=== PATIENT | female | born 2000 | race Two or more races ===

== ENCOUNTER 2024-06-08 21:35 | Emergency (ER) | payer MEDICAID, OTHER ==
[~2024-06-08] VITALS: Ht 165.1 cm; Wt 91.7 kg
[2024-06-08 22:14] LABS: Basophils # (auto) 0 10 ^3/uL (0-0.2); Basophils % (auto) 0.8 % (0.0-2.0); Eosinophils # (auto) 0 10 ^3/uL (0-0.8); Eosinophils % (auto) 0.2 % (0.0-7.0); Hematocrit 41.7 % (36.0-46.0); Hemoglobin 14.2 g/dL (12.2-16.2); Lymphocytes # (auto) 1.1 10 ^3/uL (0.4-5.4); Lymphocytes % (auto) 26.9 % (10.0-50.0); Mean Corpuscular Hemoglobin 31.2 pg (28.0-32.0); Mean Corpuscular Hgb Conc. 33.9 g/dL (32.0-36.0); Mean Corpuscular Volume 91.9 fL (80.0-100.0); Monocytes # (auto) 0.4 10 ^3/uL (0-1.3); Monocytes % (auto) 9.2 % (0.0-12.0); Neutrophils # (auto) 2.7 10 ^3/uL (1.6-8.6); Neutrophils % (auto) 62.9 % (37.0-80.0); Nucleated Red Blood Cells % 0.1 %; Platelet Count (auto) 326 10^3/uL (140-450); Red Blood Cells 4.54 10^6/uL (4.0-5.20); Red Cell Distribution Width 13.9 % (11.8-14.3); White Blood Cell 4.3 10^3/uL (4.4-10.8)
[2024-06-08 22:24] LABS: Chloride 107 mmol/L (98-107); Potassium 3.8 mmol/L (3.5-5.1); Sodium 141 mmol/L (136-145)
[2024-06-08 22:25] LABS: Anion Gap 6 (5-15); Calcium 9.8 mg/dL (8.7-10.4); Carbon Dioxide 28 mmol/L (20-31)
[2024-06-08 22:30] LABS: BUN/Creatinine Ratio 6.6 (10.0-20.0); Blood Urea Nitrogen 6 mg/dL (9-23); Glucose 102 mg/dL (74-106)
[2024-06-08 22:35] VITALS: BP 111/82; RESP 18; TEMP 98.6; O2SAT 99
[2024-06-08] MEDS: ALPRAZolam 0.5 MG TAB PO ONE (22:35)
[2024-06-08 22:38] VITALS: PULSE 88
[2024-06-09] MEDS ORDERED: ALPR0.5T PO (01:27)
== END 2024-06-09 01:39 | disposition home or self-care (01) ==
LOC: ER 21:35
DX: R07.89 Other chest pain (principal); F41.9 Anxiety disorder, unspecified; J45.909 Unspecified asthma, uncomplicated
CPT/HCPCS: 36415; 80048; 84484; 85025; 93005

== ENCOUNTER 2024-09-05 18:28 | Inpatient (IN) | payer MEDICAID, SELFPAY ==
[~2024-09-05] VITALS: Ht 165.1 cm; Wt 95.0 kg
[~2024-09-05 18:28] MED LIST: ALPR0.5T PO
--- NOTE | 2024-09-05 18:55 | ED.PDOC ---
HPI Comments 24-year-old female who came to ER via EMS for palpitations. Patient does have history of asthma and SVTs. She is not on any medications regard to her SVTs. Was seen yesterday at [facility] for palpitations in was discharge improved. Having palpitations again earlier today. Heart rate over 120 beats per minute so she decided to come back to the emergency room. She denies any acute chest pains or shortness a breath. Chief Complaint: Palpitations Time Seen by MD: 18:55 Reviewed Notes: Rotoprinter Notes Allergies: Coded Allergies: NO KNOWN ALLERGIES (Unverified , 06/08/24) Home Meds Active Scripts Alprazolam (Xanax) 0.5 Mg Tb, 1 TAB PO TID, #10 TAB Prov:HONORIO OSWALD PAC 06/09/24 Information Source: Patient, Emergency Med Personnel Mode of Arrival: EMS Severity: Moderate Timing: Hours Duration: Intermittent Prehospital treatment: None Location: Chest (R) Radiation: No Radiation Quality: Other (Palpitations) Onset: With Light Exertion Cardiac Risk Factors: Other (SVTs) History of: Similar pain in past Associated Signs and Symptoms: Palpitations Past Medical History PAST MEDICAL HISTORY: Anxiety, Asthma Past Medical History (Other): SVTs Surgical History: Denies all surgeries [employer] History: Ovarian Cysts Family History Family History: Reviewed,noncontributory to illness Social History Smoker: Non-Smoker Alcohol: Denies ETOH Use Drugs: Denies Drug Use Lives In: Home Constitutional: denies: chills, diaphoresis, fatigue, fever, malaise, sweats, weakness, others Respiratory: denies: cough, hemoptysis, orthopnea, SOB at rest, shortness of br eath, SOB with excertion, stridor, wheezing, others Cardiovascular: reports: palpitations; denies: chest pain, dizzy spells, diaphoresis, Dyspnea on exertion, edema, irregular heart beat, left arm pain, lightheadedness, PND, syncope, others Gastrointestinal: denies: abdomen distended, abdominal pain, blood streaked eliceo wels, constipated, diarrhea, dysphagia, difficulty swallowing, hematemesis, melena, nausea, poor appetite, poor fluid intake, rectal bleeding, rectal pain, vomiting, others Genitourinary: denies: abnormal vagina bleeding, burning, dyspareunia, dysuria, flank pain, frequency, hematuria, incontinence, pain, , vagina discharge, urgency, others Neurological: denies: dizziness, fainting, headache, left sided numbness, left sided weakness, numbness, paresthesia, pre-existing deficit, right sided numbness, right sided weakness, seizure, speech problems, tingling, tremors, weakness, others Musculoskeletal: denies: back pain, gout, joint pain, joint swelling, muscle pain, muscle stiffness, neck pain, others Integumetry: denies: bruises, change in color, change in hair/nails, dryness, laceration, lesions, lumps, rash, wounds, others Allergic/Immunocompromised: denies: Difficulty Healing, Frequent Infections, Hives, Itching, others Hematologic/Lymphatic: denies: anemia, blood clots, easy bleeding, easy bruis ing, swollen glands, others Endocrine: denies: excessive hunger, excessive sweating, excessive thirst, exc essive urination, flushing, intolerance to cold, intolerance to heat, unexplained weight gain, unexplained weight loss, others Psychiatric: denies: anxiety, bipolar disorder, depression, hopeless, panic disorder, schizophrenia, sleepless, suicidal, others Physical Exam General Appearance: No Apparent Distress, Normal HEENT: Normal ENT Inspection, Pharynx Normal, TMs Normal Neck: Full Range of Motion, Non-Tender, Normal, Normal Inspection Respiratory: Chest Non-Tender, Lungs Clear, No Accessory Muscle Use, No Resp iratory Distress, Normal Breath Sounds Cardiovascular: No Edema, No JVD, No Murmur, No Gallop, Normal Peripheral Pulses, Regular Rate/Rhythm Breast Exam: Deferred Gastrointestinal: No Organomegaly, Non Tender, No Pulsatile Mass, Normal Bowel Sounds, Soft Genitalia: Deferred Pelvic: Deferred Rectal: Deferred Extremities: No calf tenderness, Normal capillary refill, Normal inspection, Normal range of motion, Non-tender, No pedal edema Musculoskeletal : Apperance: Normal Neurologic: Alert, orthotic/prosthetic clinician II-XII nml as Tested, No Motor Deficits, Normal Affect, Normal Mood, No Sensory Deficits Cerebellar Function: Normal Reflexes: Normal Skin: Dry, Normal Color, Warm Lymphatic: No Adenopathy EKG EKG : Pulse Rate (adult): 70 Cardiac Rhythm: NSR Was a procedure done? Was a procedure done?: No CP Differential Dx Differential Diagnosis: A-fib, Anxiety / Panic Attack, Electrolyte Disorder, Hyperthyroidism, Hyperventilation, PSVT, PVC's, Sinus Tachycardia X-Ray, Labs, Meds, VS Vital Signs Date Time Temp Pulse Resp B/P (MAP) Pulse Ox O2 Delivery O2 Flow Rate FiO2 09/05/24 21:35 83 09/05/24 20:43 71 18 99 Room Air* 0 21 09/05/24 20:43 98.6 71 18 127/97 (107) 99 98.6 09/05/24 19:37 72 09/05/24 18:55 70 09/05/24 18:54 98.3 70 18 136/90 (105) 97 09/05/24 18:28 72 Lab Test 09/05/24 19:46 09/05/24 18:55 Range/Units Troponin I High Sensitivity < 3 L < 3 L </=34 ng/L White Blood Count 4.6 4.4-10.8 10^3/uL Red Blood Count 5.23 H 4.0-5.20 10^6/uL Hemoglobin 16.3 H 12.2-16.2 g/dL Hematocrit 47.8 H 36.0-46.0 % Mean Corpuscular Volume 91.5 80.0-100.0 fL Mean Corpuscular Hemoglobin 31.2 28.0-32.0 pg Mean Corpuscular Hemoglobin Concent 34.2 32.0-36.0 g/dL Red Cell Distribution Width 13.4 11.8-14.3 % Platelet Count 267 140-450 10^3/uL Mean Platelet Volume 8.9 6.9-10.8 fL Neutrophils (%) (Auto) 66.3 37.0-80.0 % Lymphocytes (%) (Auto) 25.9 10.0-50.0 % Monocytes (%) (Auto) 6.4 0.0-12.0 % Eosinophils (%) (Auto) 0.8 0.0-7.0 % Basophils (%) (Auto) 0.6 0.0-2.0 % Neutrophils # (Auto) 3.1 1.6-8.6 10 ^3/uL Lymphocytes # (Auto) 1.2 0.4-5.4 10 ^3/uL Monocytes # (Auto) 0.3 0-1.3 10 ^3/uL Eosinophils # (Auto) 0 0-0.8 10 ^3/uL Basophils # (Auto) 0 0-0.2 10 ^3/uL Nucleated Red Blood Cells 0.1 % Sodium Level 138 136-145 mmol/L Potassium Level 4.1 3.5-5.1 mmol/L Chloride Level 104 98-107 mmol/L Carbon Dioxide Level 27 20-31 mmol/L Anion Gap 7 5-15 Blood Urea Nitrogen 10 9-23 mg/dL Creatinine 0.94 0.550-1.02 mg/dL Glomerular Filtration Rate Calc 88 >90 mL/min BUN/Creatinine Ratio 10.6 10.0-20.0 Serum Glucose 100 74-106 mg/dL Calcium Level 9.8 8.7-10.4 mg/dL Total Bilirubin 0.5 0.2-1.0 mg/dL Aspartate Amino Transferase (AST) 19 13-40 U/L Alanine Aminotransferase (ALT) 16 7-40 U/L Alkaline Phosphatase 102 46-116 U/L Total Protein 7.6 5.7-8.2 g/dL Albumin 4.8 3.2-4.8 g/dL Time of 1ST Reevaluation: 18:50 Reevaluation 1ST: Unchanged Patient Education/Counseling: Diagnosis, Treatment Family Education/Counseling: No Family Present Departure 1 Departure Time of Disposition: 22:15 (Patient presented with chest pain that was concerning for possible STEMI, ACS, PE, Pneumonia, Muscle Strain, COPD, Dissection. Data: 1. I ordered and reviewed the result of at least 3 labs including a CBC, BMP, and Troponin. 2. I independently interpreted the following tests: EKG which shows sinus arrhythmia and Chest X-ray which shows benign ches t.Risk:This patient has a high risk of morbidity due to further diagnostic testing or treatment and may suffer from an acute cardiac or respiratory disorder. Workup reveals concern for ACS and patient should be admitted for further workup and possible expert consultation. ) Impression: Primary Impression: Acute chest pain Additional Impression: Palpitations Disposition: ADMITTED INPATIENT Admit to: Med Surg Condition: Serious Critical Care Note Critical Care Time?: Yes Critical care comment: Acute chest pain Authorized and Performed by: Adithya Glover MD Total critical care time: Approximately 32 minutes Due to a high probability of clinically significant, life threatening dete rioration, the patient required my highest level of preparedness to intervene emergently and I personally spent this critical care time directly and personally managing the patient. This critical care time included obtaining a history; examining the patient; pulse oximetry; ordering and review of studies; arranging urgent treatment with development of a management plan; evaluation of patient's response to treatment; frequent reassessment; and, discussions with other providers. This critical care time was performed to assess and manage the high probability of imminent, life-threatening deterioration that could result in multi-organ f ailure. It was exclusive of separately billable procedures and treating other patients and teaching time. Please see my other sections and the rest of the note for further information on patient assessment and treatment. Stability Stability form required: No Heart Score Heart Score: Heart Score Response (Comments) Value History Moderate Suspicious 1 EKG Normal 0 Age <45 0 Risk Factors 1 or 2 risk factors 1 Troponin Normal limit 0 Total 2 I personally scribed for ADITHYA GLOVER MD ([email or web address]) on 09/05/24 at 18:55. Electronically submitted by Dada Faust ([facility]). ADITHYA GLOVER MD Sep 05, 2024 18:55
[2024-09-05 19:06] LABS: Basophils # (auto) 0 10 ^3/uL (0-0.2); Basophils % (auto) 0.6 % (0.0-2.0); Eosinophils # (auto) 0 10 ^3/uL (0-0.8); Eosinophils % (auto) 0.8 % (0.0-7.0); Hematocrit 47.8 % (36.0-46.0); Hemoglobin 16.3 g/dL (12.2-16.2); Lymphocytes # (auto) 1.2 10 ^3/uL (0.4-5.4); Lymphocytes % (auto) 25.9 % (10.0-50.0); Mean Corpuscular Hemoglobin 31.2 pg (28.0-32.0); Mean Corpuscular Hgb Conc. 34.2 g/dL (32.0-36.0); Mean Corpuscular Volume 91.5 fL (80.0-100.0); Monocytes # (auto) 0.3 10 ^3/uL (0-1.3); Monocytes % (auto) 6.4 % (0.0-12.0); Neutrophils # (auto) 3.1 10 ^3/uL (1.6-8.6); Neutrophils % (auto) 66.3 % (37.0-80.0); Nucleated Red Blood Cells % 0.1 %; Platelet Count (auto) 267 10^3/uL (140-450); Red Blood Cells 5.23 10^6/uL (4.0-5.20); Red Cell Distribution Width 13.4 % (11.8-14.3); White Blood Cell 4.6 10^3/uL (4.4-10.8)
--- NOTE | 2024-09-05 19:17 | ECG ---
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
[2024-09-05 19:32] LABS: Alanine Aminotransferase 16 U/L (7-40); Alkaline Phosphatase 102 U/L (46-116); Anion Gap 7 (5-15); Aspartate Aminotransferase 19 U/L (13-40); BUN/Creatinine Ratio 10.6 (10.0-20.0); Bilirubin, Total 0.5 mg/dL (0.2-1.0); Blood Urea Nitrogen 10 mg/dL (9-23); Calcium 9.8 mg/dL (8.7-10.4); Carbon Dioxide 27 mmol/L (20-31); Chloride 104 mmol/L (98-107); Glucose 100 mg/dL (74-106); Potassium 4.1 mmol/L (3.5-5.1); Sodium 138 mmol/L (136-145); Total Protein 7.6 g/dL (5.7-8.2)
[2024-09-05 19:33] LABS: Albumin 4.8 g/dL (3.2-4.8)
[2024-09-05 20:43] VITALS: PULSE 71; RESP 18; O2SAT 99
[2024-09-06] VITALS (9 sets, daily range): BP systolic 102–136; BP diastolic 64–97; PULSE 69–105; RESP 16–20; TEMP 97.7–98.4; O2SAT 96–100
[2024-09-06] MEDS ORDERED: MORPHINE SULFATE INJ 2 MG/ml SYRG IV PRN (00:30)
[2024-09-06] MEDS: LORazepam 0.5 MG TAB PO ONE (00:45)
[2024-09-06] MEDS ORDERED: ONDANSETRON HCL 4 MG/2 ML VIAL IV PRN (00:45)
[2024-09-06] MEDS ORDERED: ACETAMINOPHEN 325 MG TAB PO PRN (00:45)
--- NOTE | 2024-09-06 00:56 | DVHHPRES ---
History of Present Illness Resident Creating Document: CHRIS VERMA RESIDENT Reason for Visit: Palpitations and chest pain History of Present Illness This is a 24-year-old female who came into the ER via EMS with chief complain of palpitations. She has a past medical history relevant for asthma, PCOS, anxiety disorder. Patient denies any drugs, smoking or alcohol use. She stated that since last Monday she has been experiencing palpitations, which wax and wane, exacerbate with changes of position, eating habits. She says it was associated with chest pain, pressure-like, midsternal, localized, which is also associated with nausea, shortness of breath, it was relief with re st and relaxation. She also mentions having chills, denies any recent sick contacts. Patient was previously hospitalized here for similar findings she was sent to product assembler, however, she has been able to get an appointment. She was seen in [place] yesterday and was discharged with metoprolol 25 mg p.o., which she took one time, however no improvement was made. She currently states feeling anxious, still having chest pain, shortness of breath, she has currently on room air, ambulatory. Patient was admitted for further investigation and management. Pulmonary: Asthma Psych: Anxiety Past Medical History PCOS Past Surgical History: None Family History: DM, Hypertension Smoke: No ALCOHOL: rare Lives: with Family Review of Systems Constitutional: Yes: Chills; No: Fever, Sweats, Weakness, Malaise, Other Eyes: No: Pain, Vision change, Conjunctivae inflammation, Eyelid inflammation, Other, Redness ENT: No: Ear pain, Ear discharge, Nose pain, Nose discharge, Nose congestion, Mouth pain, Mouth swelling, Throat pain, Throat swelling, Other Respiratory: Shortness of breath, SOB with excertion; No: Cough, Dry, Wheezing, Hemoptysis, Pleuritic Pain, Sputum, Wheezing, Other Cardiovascular: Chest Pain, Palpitations; No: Orthopnea, Paroxysmal Noc. Dyspnea, Edema, Lt Headedness, Other Gastrointestinal: Nausea; No: Vomiting, Abdominal Pain, Diarrhea, Constipation, Melena, Hematochezia, Other Genitourinary: No Dysuria, No Frequency, No Incontinence, No Hematuria, No Retention, No Other Musculoskeletal: No: other, neck pain, shoulder pain, arm pain, back pain, hand pain, leg pain, foot pain Skin: No: Rash, Lesions, Jaundice, Bruising, Other Neurological: No: Weakness, Numbness, Incoordination, Change in speech, Confusion, Seizures, Other Allergies: Coded Allergies: NO KNOWN ALLERGIES (Unverified , 06/08/24) Medications Current Medications Medications Dose Ordered Sig/Fransisco Route Start Time Stop Time Status Last Admin Dose Admin Morphine Sulfate 2 mg Q30M PRN IV 09/06/24 00:30 Exam Vital Signs Vital Signs Date Time Temp Pulse Resp B/P (MAP) Pulse Ox O2 Delivery O2 Flow Rate FiO2 09/05/24 23:38 98.1 103 16 131/86 (101) 99 98.1 09/05/24 20:43 Room Air* 0 21 General Appearance: Alert, Oriented X3, Cooperative, No acute distress HEENT: Atraumatic, PERRLA, EOMI, Mucous membr. moist/pink Respiratory: Clear to auscultation, Normal air movement Cardiovascular: Regular rate, Normal S1, Normal S2, No murmurs Abdominal: Normal bowel sounds, Soft, No tenderness Extremities: No clubbing, No cyanosis, No edema, Normal pulses, No t enderness/swelling Skin: No rashes, No breakdown, No significant lesion Neuro: Normal gait, Normal speech, Strength at 5/5 X4 ext, Normal tone, Sensation intact, Cranial nerves 3-12 NL Psych/Mental Status: Mental status NL, Mood NL, Other (Anxious) Labs/Xrays Labs Test 09/05/24 19:46 09/05/24 18:55 Range/Units Troponin I High Sensitivity < 3 L </=34 ng/L White Blood Count 4.6 4.4-10.8 10^3/uL Red Blood Count 5.23 H 4.0-5.20 10^6/uL Hemoglobin 16.3 H 12.2-16.2 g/dL Hematocrit 47.8 H 36.0-46.0 % Mean Corpuscular Volume 91.5 80.0-100.0 fL Mean Corpuscular Hemoglobin 31.2 28.0-32.0 pg Mean Corpuscular Hemoglobin Concent 34.2 32.0-36.0 g/dL Red Cell Distribution Width 13.4 11.8-14.3 % Platelet Count 267 140-450 10^3/uL Mean Platelet Volume 8.9 6.9-10.8 fL Neutrophils (%) (Auto) 66.3 37.0-80.0 % Lymphocytes (%) (Auto) 25.9 10.0-50.0 % Monocytes (%) (Auto) 6.4 0.0-12.0 % Eosinophils (%) (Auto) 0.8 0.0-7.0 % Basophils (%) (Auto) 0.6 0.0-2.0 % Neutrophils # (Auto) 3.1 1.6-8.6 10 ^3/uL Lymphocytes # (Auto) 1.2 0.4-5.4 10 ^3/uL Monocytes # (Auto) 0.3 0-1.3 10 ^3/uL Eosinophils # (Auto) 0 0-0.8 10 ^3/uL Basophils # (Auto) 0 0-0.2 10 ^3/uL Nucleated Red Blood Cells 0.1 % Sodium Level 138 136-145 mmol/L Potassium Level 4.1 3.5-5.1 mmol/L Chloride Level 104 98-107 mmol/L Carbon Dioxide Level 27 20-31 mmol/L Anion Gap 7 5-15 Blood Urea Nitrogen 10 9-23 mg/dL Creatinine 0.94 0.550-1.02 mg/dL Glomerular Filtration Rate Calc 88 >90 mL/min BUN/Creatinine Ratio 10.6 10.0-20.0 Serum Glucose 100 74-106 mg/dL Calcium Level 9.8 8.7-10.4 mg/dL Total Bilirubin 0.5 0.2-1.0 mg/dL Aspartate Amino Transferase (AST) 19 13-40 U/L Alanine Aminotransferase (ALT) 16 7-40 U/L Alkaline Phosphatase 102 46-116 U/L Total Protein 7.6 5.7-8.2 g/dL Albumin 4.8 3.2-4.8 g/dL Assessment/Plan Assessment/Plan #Chest pain, rule out ACS, likely noncardiac, related to below, costochondritis #Anxiety disorder #Panic attack #Palpitations, likely sinus tachycardia due to above, rule out postural tachycardia syndrome, hyperthyroidism EKG reviewed, NSR, mild left atrial enlargement, no acute ST-T changes Troponins within normal limits Order echocardiogram Counseled on lifestyle modifications Cardiac diet Ordered test Ordered chest x-ray Order orthostatic vitals Ordered ESR, CRP, TSH, lipid panel, magnesium, UDS, UA Pain management p.r.n. Ativan 1 mg p.o. q.6 hours p.r.n. #History of Asthma, controlled Monitor #History of PCOS Monitor #Obesity Counseled on lifestyle modifications Goals of care were discussed for over 30 minutes. Full code Case was discussed with Dr. Tate Plan discussed with: Patient My Orders Orders - CHRIS VERMA Procedure Category Date Status Time Admit ADMIT 09/06/24 Transmitted 00:29 Morphine Sulfate [facility] 09/06/24 In Process Injection 00:30 Notify Md Of Changes [place] 09/06/24 In Process From Base 00:29 Health Lead For [facility] 09/06/24 In Process 24 Hours 00:29 Emergency Dysrhythmia [facility] 09/06/24 In Process Protocol 00:29 Rhythm Strips Once [facility] 09/06/24 In Process Every Shift 00:29 Echo 2d Mode Cardiac US 09/06/24 Logged DOP 00:33 Complete Blood Count LAB 09/06/24 Transmitted 04:00 Basic Metabolic Panel LAB 09/06/24 Transmitted 04:00 Troponin-I Hs LAB 09/06/24 Transmitted 04:00 C-Reactive Protein LAB 09/06/24 Transmitted 00:33 Erythrocyte LAB 09/06/24 Transmitted Sedimentation Rate 00:33 Urinalysis LAB 09/06/24 Transmitted 00:33 Drug Screen LAB 09/06/24 Transmitted 00:33 Lorazepam Tablet PHA 09/06/24 Transmitted (Ativan Tablet) 00:45 Lorazepam Tablet PHA 09/06/24 Transmitted (Ativan Tablet) 00:45 Thyroid Stimulating LAB 09/06/24 Transmitted Hormone 00:33 Magnesium LAB 09/06/24 Transmitted 00:33 Chest Xray 1 View XY 09/06/24 Logged 00:33 Beta Hcg, Quantitative LAB 09/06/24 Transmitted 00:33 Orthostatic Vital ORDERS 09/06/24 Transmitted Signs 00:33 Acetaminophen Tablet PHA 09/06/24 Transmitted (Tylenol Tablet) 00:45 Cardiac DIET 09/06/24 Transmitted Diet-2gna,Lofat,Lochol Breakfast Ondansetron Hcl PHA 09/06/24 Transmitted (Zofran) 00:45 Date of Service: Sep 05, 2024 Billing Provider: MATILDE LOUIS MD Common Visit Codes: [id number] INP/OBS CARE (HIGH) CHRIS VERMA RESIDENT Sep 06, 2024 00:56 MATILDE LOUIS MD Sep 11, 2024 16:01
[2024-09-06 01:08] LABS: Thyroid Stimulating Hormone 1.28 uIU/mL (0.55-4.78)
[2024-09-06 01:09] LABS: Beta HCG, Quantitative 0.5 mIU/mL (1.5-4.2)
--- NOTE | 2024-09-06 01:13 | DVH ---
EXAM: XY CHEST XRAY 1 VIEW CLINICAL HISTORY: chest pain TECHNIQUE: Single AP view of the chest WID: COMPARISON: None FINDINGS: Lines and tubes: None Chest: The heart size and pulmonary vasculature is within normal limits. No pleural effusion, pneumothorax, or consolidation. The osseous structures are grossly intact. IMPRESSION: No acute cardiopulmonary abnormality.
[2024-09-06 01:38] LABS: Erythrocyte Sedimentation Rate 6 mm/hr (0-20)
[2024-09-06 01:43] LABS: CRP High Sensitivity 0.18 mg/dL (<1.0)
[2024-09-06] MEDS: LORazepam 0.5 MG TAB PO PRN (03:21)
[2024-09-06 08:06] LABS: Rapid Influenza A Negative (Negative); Rapid Influenza B Negative (Negative)
[2024-09-06 08:07] LABS: COVID19 ANTIGEN SOFIA FIA NEGATIVE (NEGATIVE)
[2024-09-06 09:34] LABS: Urine Bacteria None Seen /hpf (None Seen)
[2024-09-06 09:49] LABS: Urine Blood Negative /uL (Negative); Urine Clarity Clear (Clear); Urine Color Yellow (Yellow); Urine Mucus FEW (None Seen); Urine Protein, UAD TRACE (Negative); Urine Specific Gravity 1.027 (1.001-1.035); Urine Squamous Epithelial Cell FEW /hpf (<5); Urine Urobilinogen Normal (Negative); Urine WBC 3 /HPF (0-5); Urine pH 5.5 (5.0-9.0)
[2024-09-06 09:56] LABS: Barbiturate Scree,Urine Neg (NEGATIVE); Opiate Scree,Urine Neg (NEGATIVE); Phencyclidine Screen, Urine Neg (NEGATIVE)
[2024-09-06 09:57] LABS: Amphetamine Screen, Urine Neg (NEGATIVE); Benzodiazephine Screen, Urine Neg (NEGATIVE); Cannabinoid Screen, Urine Neg (NEGATIVE); Cocaine Screen, Urine Neg (NEGATIVE)
[2024-09-06 10:44] LABS: Basophils # (auto) 0 10 ^3/uL (0-0.2); Basophils % (auto) 0.6 % (0.0-2.0); Eosinophils # (auto) 0.1 10 ^3/uL (0-0.8); Eosinophils % (auto) 1.1 % (0.0-7.0); Hematocrit 44.8 % (36.0-46.0); Hemoglobin 15.1 g/dL (12.2-16.2); Lymphocytes % (auto) 35.3 % (10.0-50.0); Mean Corpuscular Hemoglobin 31.1 pg (28.0-32.0); Mean Corpuscular Hgb Conc. 33.7 g/dL (32.0-36.0); Mean Corpuscular Volume 92.3 fL (80.0-100.0); Monocytes # (auto) 0.3 10 ^3/uL (0-1.3); Monocytes % (auto) 5.8 % (0.0-12.0); Neutrophils # (auto) 3.2 10 ^3/uL (1.6-8.6); Neutrophils % (auto) 57.2 % (37.0-80.0); Nucleated Red Blood Cells % 0.1 %; Platelet Count (auto) 269 10^3/uL (140-450); Red Blood Cells 4.86 10^6/uL (4.0-5.20); White Blood Cell 5.6 10^3/uL (4.4-10.8)
[2024-09-06 11:00] LABS: Anion Gap 7 (5-15); Carbon Dioxide 26 mmol/L (20-31); Chloride 103 mmol/L (98-107); Potassium 3.6 mmol/L (3.5-5.1); Sodium 136 mmol/L (136-145)
[2024-09-06 11:01] LABS: Calcium 9.8 mg/dL (8.7-10.4)
[2024-09-06 11:06] LABS: BUN/Creatinine Ratio 13.3 (10.0-20.0); Blood Urea Nitrogen 11 mg/dL (9-23)
[2024-09-06 11:11] LABS: Glucose 128 mg/dL (74-106)
--- NOTE | 2024-09-06 11:46 | DVHSR ---
APPROVED REPORT EXAM: Two-dimensional and M-mode echocardiogram with Doppler and color Doppler. Blood Pressure: 124/83 mmHg INDICATION Chest Pain RISK FACTORS Height: 5'5, Weight: 209 DIMENSIONS LVDd4.6 (3.8-5.7cm)LA (2D)3.8 (1.9-4.0cm)Aortic Root3.1 (2.0-3.7cm) LVDs3.1 (2.5-4.0cm)LA (MM) (1.9-4.0cm)Aortic Cusp Exc1.9 (1.5-2.0cm) EF (%) 60.0 (55-70%)Rt. Atrium3.0 (1.9-4.0cm)Asc. Aorta2.6 cm IVSd1.0 (0.7-1.1cm)RV (D)3.8 (1.8-2.4cm) PWd1.0 (0.7-1.1cm) Mitral Valve MitralMitral Stenosis E wave0.78m/sMV Mean GR.mmHg A wave0.44m/sMV Peak GR.mmHg E/A ratio1.82D MVAcm2 DECEL [id number] 1/2 Timems Aortic Valve Aortic ValveAortic Stenosis V10.89m/Aditya Mean GR.4mmHg V21.22m/Aditya Peak GR.6mmHg LVOT Diameter2.0 (1.8-2.4cm)Doppler AVA2.29cm2 Pulmonic Valve V20.88m/s Tricuspid Valve TR Velocity2.20m/s [id number] LEFT VENTRICLE The left ventricle is normal size. There is normal left ventricular wall thickness. The left ventricle is normal in structure and function, LVEF is 60-65%. Tissue Doppler imaging reveals normal left ventricular diastolic function. Normal wall motion. RIGHT VENTRICLE The right ventricle is normal size. The right ventricular systolic function is normal. ATRIA The left atrial size is normal. The right atrium size is normal. MITRAL VALVE The mitral valve is normal in structure and function. There is no mitral valve regurgitation noted. PULMONIC VALVE The pulmonic valve is not well visualized. TRICUSPID VALVE The tricuspid valve is normal in structure and function. No tricuspid regurgitation. AORTIC VALVE The aortic valve is trileaflet. No aortic regurgitation is present. GREAT VESSELS The aortic root is normal size. PERICARDIAL EFFUSION No pericardial effusion. Conclusion The left ventricle is normal size. There is normal left ventricular wall thickness. The left ventricl e is normal in structure and function, LVEF is 60-65%. Normal wall motion. Tissue Doppler imaging rev eals normal left ventricular diastolic function. The right ventricular systolic function is normal. The left atrial size is normal. The right atrium size is normal. No significant valvular abnormalities. No pericardial effusion.
[2024-09-06] MEDS: SODIUM CHLORIDE 0.9% 1,000 ML IV SCH (12:26)
--- NOTE | 2024-09-06 16:57 | DVHPNRES ---
Progress Note Date Seen: Sep 06, 2024 Resident Creating Document: DAYA JORDAN RESIDENT Medical Necessity Reason Pt with a Central, PICC or Fol: No Subjective Review of Systems This is a 24-year-old female with past medical history of panic disorder, asthma presented to the ED with a chief complaint of intermittent palpitation since 1 day prior to this admission. patient also stated that palpitation is associated with chest pain which is pressure-like midsternal, localized 7/10 and associated with nausea and shortness of breath. patient also mentioned that previously she was hospitalized because of the palpitation and she was following with commissary clerk and waiting for appointment with neon tube pumper. She was seen in [place] yesterday and was discharged with metoprolol 25 mg p.o., which she took one time, however no improvement was made.She currently states feeling anxious, still having chest pain, shortness of breath, she has currently on room air, ambulatory. Patient was admitted for further investigation and management. Patient was seen and examined on the bedside. She is alert oriented x3. complaint of anxiety, mild chest discomfort and no other active complaints. Constitutional: No: Fever, Chills, Sweats, Weakness, Malaise, Other Eyes: No: Pain, Vision change, Conjunctivae inflammation, Eyelid inflammation, Other, Redness ENT: No: Ear pain, Ear discharge, Nose pain, Nose discharge, Nose congestion, Mouth pain, Mouth swelling, Throat pain, Throat swelling, Other Respiratory: Shortness of breath, improving No: Cough, Dry,Wheezing, Hemoptysis, Pleuritic Pain, Sputum, Wheezing, Other Cardiovascular: Chest Pain, Palpitations, No Orthopnea, Paroxysmal Noc. Dyspnea, Edema, Lt Headedness, Other Gastrointestinal: No: Nausea, Vomiting, Abdominal Pain, Diarrhea, Constipation, Melena, Hematochezia, Other Musculoskeletal: No: other, neck pain, shoulder pain, arm pain, back pain, hand pain, leg pain, foot pain Neurological:; No: Weakness, Numbness, Incoordination, Change in speech, Confusion, Seizures Objective vital signs Vital Sign Date Time Temp Pulse Resp B/P (MAP) Pulse Ox O2 Delivery O2 Flow Rate FiO2 09/06/24 12:58 97.7 72 16 130/86 (101) 100 97.7 134/93 (107) 136/97 (110) 09/06/24 08:00 Room Air* 0 21 Total Intake and Output 09/05/24 09/05/24 09/06/24 15:00 23:00 07:00 Intake Total 100 ml Output Total 0 ml Balance 100 ml medications Current Medications Medications Dose Ordered Sig/Fransisco Route Start Time Stop Time Status Last Admin Dose Admin Morphine Sulfate 2 mg Q30M PRN IV 09/06/24 00:30 Lorazepam 1 mg Q6HP PRN PO 09/06/24 00:45 09/06/24 10:31 1 MG Acetaminophen 650 mg Q6HP PRN PO 09/06/24 00:45 Ondansetron HCl 4 mg Q4HPRN PRN IV 09/06/24 00:45 Ketorolac Tromethamine 15 mg Q6HPRN PRN IV 09/06/24 06:00 09/11/24 05:59 Sodium Chloride 1,000 ml @ 125 mls/hr Q8H IV 09/06/24 12:00 09/06/24 12:26 125 MLS/HR Examination Physical examination: General Appearance: Alert, Oriented X3, Cooperative, No acute distress HEENT: Atraumatic, PERRLA, EOMI, Mucous membrane moist/pink Respiratory: Clear to auscultation, Normal air movement Cardiovascular: Regular rate, Normal S1, Normal S2, No murmurs, no chest wall tenderness Abdominal: Normal bowel sounds, Soft, No tenderness, No hepatospenomegaly, No masses Extremities: No clubbing, No cyanosis, No edema, Normal pulses, No tenderness/swelling Skin: No rashes, No breakdown, No significant lesion Neuro: Normal gait, Normal speech, Strength at 5/5 X4 ext, Normal tone, Sensation intact, grossly intact cranial nerves. Psych/Mental Status: Mental status NL, Mood NL laboratory and microbiology Laboratory Tests 09/06/24 10:05 Test 09/06/24 10:05 Range/Units Serum Glucose 128 H 74-106 mg/dL Labs and/or images reviewed: Labs reviewed by me, Image(s) reviewed by me Problem List/Assessment/Plan Problem List/Assessment/Plan Assessment and plan: # Chest pain and palpitation, ruled out ACS # Possible panic attack # History of panic disorder # Rule out tachyarrhythmia - patient is on telemetry - initial EKG revealed sinus tachycardia and troponins were unremarkable - Chest xray demonstrated no acute cardiopulmonary abnormality. - Echo revealed ejection fraction 60-65% with normal left ventricular diastolic dysfunction - Orthoststic vital negative - ESR, CRP, TSH, magnesium, UDS, UA are within normal limit - Ativan 1 mg p.o. q.6 p.r.n. - IV normal saline at 125 mL/hour - Xanax 0.25 mg at HS once. # History of bronchial asthma - Breathing treatment with Levoalbuterol p.r.n. # History of PCOS - Continue home meds - follow up with PCP # Obesity class 1 ( BMI 34.9 kg/m2) - Counseled the patient regarding DASH diet, lifestyle modification and moderate intensity physical exercise at least 150 minutes per week Goal of care discussed with the patient for more than 20 minutes full code Plan discussed with Dr. Tate Plan discussed with: Patient, Other My Orders My Orders Orders - DAYA JORDAN Procedure Category Date Status Time Transfer Orders XFER 09/06/24 Transmitted 10:38 Sodium Chloride 0.9% PHA 09/06/24 In Process 12:00 Date of Service: Sep 06, 2024 Billing Provider: MATILDE LOUIS MD Common Visit Codes: [id number] INP/OBS CARE(HIGH) DAYA JORDAN Sep 06, 2024 16:57 MATILDE LOUIS MD Sep 11, 2024 00:07
[2024-09-06] MEDS: ALPRAZolam 0.25 MG TAB PO ONE (18:26)
[2024-09-06] MEDS: KETOROLAC TROMETH 30 MG/ML 1ML VIAL IV PRN (23:11)
[2024-09-07] VITALS (7 sets, daily range): BP systolic 111–129; BP diastolic 49–86; PULSE 63–91; RESP 15–20; TEMP 97.7–98.1; O2SAT 93–100
[2024-09-07 07:16] LABS: Basophils # (auto) 0 10 ^3/uL (0-0.2); Basophils % (auto) 0.5 % (0.0-2.0); Eosinophils # (auto) 0.1 10 ^3/uL (0-0.8); Hematocrit 41.7 % (36.0-46.0); Hemoglobin 14.1 g/dL (12.2-16.2); Lymphocytes # (auto) 2.3 10 ^3/uL (0.4-5.4); Mean Corpuscular Hgb Conc. 33.7 g/dL (32.0-36.0); Mean Corpuscular Volume 91.9 fL (80.0-100.0); Monocytes # (auto) 0.5 10 ^3/uL (0-1.3); Monocytes % (auto) 8.7 % (0.0-12.0); Neutrophils # (auto) 3.3 10 ^3/uL (1.6-8.6); Neutrophils % (auto) 52.8 % (37.0-80.0); Nucleated Red Blood Cells % 0.1 %; Platelet Count (auto) 262 10^3/uL (140-450); Red Blood Cells 4.54 10^6/uL (4.0-5.20); Red Cell Distribution Width 13.2 % (11.8-14.3); White Blood Cell 6.2 10^3/uL (4.4-10.8)
[2024-09-07 07:43] LABS: Albumin 3.8 g/dL (3.2-4.8); Alkaline Phosphatase 80 U/L (46-116); Anion Gap 10 (5-15); Blood Urea Nitrogen 9 mg/dL (9-23); Calcium 9.5 mg/dL (8.7-10.4); Carbon Dioxide 23 mmol/L (20-31); Glucose 86 mg/dL (74-106); Potassium 3.6 mmol/L (3.5-5.1); Sodium 141 mmol/L (136-145)
[2024-09-07 07:44] LABS: Alanine Aminotransferase < 9 U/L (7-40); Aspartate Aminotransferase 10 U/L (13-40); Bilirubin, Total 0.4 mg/dL (0.2-1.0); Chloride 108 mmol/L (98-107); Total Protein 6.3 g/dL (5.7-8.2)
[2024-09-07] MEDS ORDERED: SERT25TA28 PO (15:19)
--- NOTE | 2024-09-07 15:26 | DVHDSRES ---
Discharge Summary Date of Admission Resident Creating Document: SHUKRI BROCK RESIDENT Sep 06, 2024 at 00:29 Date of Discharge: Sep 07, 2024 Admitting Diagnosis Acute palpitations Wounds: No wounds present at this time. Labs/Diagnostic Data: Laboratory Results Test 09/07/24 05:41 09/06/24 10:05 09/06/24 09:15 09/06/24 06:30 White Blood Count 6.2 10^3/uL (4.4-10.8) Red Blood Count 4.54 10^6/uL (4.0-5.20) Hemoglobin 14.1 g/dL (12.2-16.2) Hematocrit 41.7 % (36.0-46.0) Mean Corpuscular Volume 91.9 fL (80.0-100.0) Mean Corpuscular Hemoglobin 31.0 pg (28.0-32.0) Mean Corpuscular Hemoglobin Concent 33.7 g/dL (32.0-36.0) Red Cell Distribution Width 13.2 % (11.8-14.3) Platelet Count 262 10^3/uL (140-450) Mean Platelet Volume 9.0 fL (6.9-10.8) Neutrophils (%) (Auto) 52.8 % (37.0-80.0) Lymphocytes (%) (Auto) 37.0 % (10.0-50.0) Monocytes (%) (Auto) 8.7 % (0.0-12.0) Eosinophils (%) (Auto) 1.0 % (0.0-7.0) Basophils (%) (Auto) 0.5 % (0.0-2.0) Neutrophils # (Auto) 3.3 10 ^3/uL (1.6-8.6) Lymphocytes # (Auto) 2.3 10 ^3/uL (0.4-5.4) Monocytes # (Auto) 0.5 10 ^3/uL (0-1.3) Eosinophils # (Auto) 0.1 10 ^3/uL (0-0.8) Basophils # (Auto) 0 10 ^3/uL (0-0.2) Nucleated Red Blood Cells 0.1 % Sodium Level 141 mmol/L (136-145) Potassium Level 3.6 mmol/L (3.5-5.1) Chloride Level 108 mmol/L (98-107) Carbon Dioxide Level 23 mmol/L (20-31) Anion Gap 10 (5-15) Blood Urea Nitrogen 9 mg/dL (9-23) Creatinine 0.75 mg/dL (0.550-1.02) Glomerular Filtration Rate Calc 115 mL/min (>90) BUN/Creatinine Ratio 12.0 (10.0-20.0) Serum Glucose 86 mg/dL (74-106) Calcium Level 9.5 mg/dL (8.7-10.4) Total Bilirubin 0.4 mg/dL (0.2-1.0) Aspartate Amino Transferase (AST) 10 U/L (13-40) Alanine Aminotransferase (ALT) < 9 U/L (7-40) Alkaline Phosphatase 80 U/L (46-116) Total Protein 6.3 g/dL (5.7-8.2) Albumin 3.8 g/dL (3.2-4.8) Troponin I High Sensitivity < 3 ng/L (</=34) Urine Color Yellow (Yellow) Urine Clarity Clear (Clear) Urine pH 5.5 (5.0-9.0) Urine Specific [place] 1.027 (1.001-1.035) Urine Protein Trace (Negative) Urine Ketones 2+ (Negative) Urine Blood Negative /uL (Negative) Urine Nitrite Negative (Negative) Urine Bilirubin Negative (Negative) Urine Urobilinogen Normal mg/dL (Negative) Urine Leukocyte Esterase Negative /uL (Negative) Urine RBC 1 /hpf (0 - 4) Urine Microscopic WBC 3 /HPF (0-5) Urine Squamous Epithelial Cells Few /hpf (<5) Urine Bacteria None seen /hpf (None Seen) Urine Mucus Few (None Seen) Urine Glucose Normal mg/dL (Normal) Urine Test Negative (Negative) Urine Opiates Screen Neg (NEGATIVE) Urine Fentanyl Screen Neg (NEGATIVE) Urine Barbiturates Screen Neg (NEGATIVE) Urine Phencyclidine Screen Neg (NEGATIVE) Urine Amphetamines Screen Neg (NEGATIVE) Urine Benzodiazepines Screen Neg (NEGATIVE) Urine Cocaine Screen Neg (NEGATIVE) Urine Cannabinoids Screen Neg (NEGATIVE) Influenza Type A Antigen Negative (Negative) Influenza Type B Antigen Negative (Negative) SARS-CoV-2 Antigen (Rapid) Negative (NEGATIVE) Test 09/05/24 18:55 Erythrocyte Sedimentation Rate 6 mm/hr (0-20) Magnesium Level 2.0 mg/dL (1.6-2.6) C-Reactive Protein High Sensitivity 0.18 mg/dL (<1.0) Thyroid Stimulating Hormone (TSH) 1.28 uIU/mL (0.55-4.78) Beta HCG, Quantitative 0.5 mIU/mL (1.5-4.2) Other Laboratory Tests 09/07/24 05:41 Brief Hx & Hospital Course: This is a 24-year-old female with past medical history of panic disorder, asthma presented to the ED with a chief complaint of intermittent palpitation since 1 day prior to this admission. The patient also stated that palpitation is associated with chest pain/discomfort which is pressure-like midsternal, localized in the chest with no specific pattern of radiation, associated with nausea and shortness of breath. Patient was placed on telemetry to analyze the rhythm overnight and determine the possibility of any arrhythmias at this time. We analyzed cardiac rhythm overnight and the patient had two episodes of sustained sinus tachycardia in the 120s-130s. When we discuss the findings with the patient, she admitted she woke up at that same time with sensation of fear and palpitations. No tachyarrhythmias were reported in the color television console monitor. We will discharge the patient on sertraline 25 mg daily with close follow-up with his PCP. We explained to the patient that if after six weeks of been on the medication she still presenting with the same symptoms need [facility] for event monitor and further assessment. Discharge plan: -control panic disorder with the sertraline 25 mg daily p.o. -follow-up with the discharge Clinic -follow-up with her PCP in one week Consults/Reason for consult N/A Operations or Procedures EXAM: XY CHEST XRAY 1 VIEW CLINICAL HISTORY: chest pain TECHNIQUE: Single AP view of the chest WID: COMPARISON: None FINDINGS: Lines and tubes: None Chest: The heart size and pulmonary vasculature is within normal limits. No pleural effusion, pneumothorax, or consolidation. The osseous structures are grossly intact. IMPRESSION: No acute cardiopulmonary abnormality. Condition at Discharge: Good Final Diagnosis/Problems List Chest pain and palpitation, ruled out ACS Possible panic attack History of panic disorder Rule out tachyarrhythmia History of bronchial asthma History of PCOS Obesity class 1 ( BMI 34.9 kg/m2) Discharge Disposition: Home Discharge Instruct/Medications Diet: Regular Activity: No Restrictions, As Tolerated Follow Up/Referral: Follow-up with her PCP one week Follow-up with discharge Clinic. Medications: Sertraline 25 mg daily Discharge Statement: "Patient was advised to return to the ER or call 911 if any headaches, dizziness, shortness of breath, chest pain, abdominal pain, bleeding, fevers, or worsening of medical condition. Patient was counseled about treatment plan, medications, possible side effects, patientverbalized understanding. All questions were answered to the best of my ability. This discharge took greater then 30 minutes in planning, reviewing documentation, counseling the patient, and discussing with other team members." ASSESSMENT ASSESSMENT Assessment Chest pain and palpitation, ruled out ACS Possible panic attack History of panic disorder Rule out tachyarrhythmia History of bronchial asthma History of PCOS Obesity class 1 ( BMI 34.9 kg/m2) SHUKRI BROCK RESIDENT Sep 07, 2024 15:26
--- NOTE | 2024-09-09 11:31 | ECG ---
[facility] Test Date: 2024-09-05 Test Time: 21:35:57 Pat Name: SHERINE MARY Department: ER Room: [address] [place] [address] 7 Gender: F Street Department Dispatcher: KETURAH : 2000 Requested By: ADITHYA CHUA Order Number: [id number] Reading MD: Jorge Daugherty Measurements Intervals [place] Rate: 83 P: 63 AR: 118 QRS: 52 QRSD: 72 T: 12 QT: 344 QTc: 405 Interpretive Statements Sinus rhythm Borderline short AR interval Borderline T wave abnormalities Electronically Signed On 09-09-2024 21:08:20 PST by Jorge Daugherty Please click the below link to view image of tracing.
--- NOTE | 2024-09-09 11:32 | ECG ---
[facility] Test Date: 2024-09-05 Test Time: 19:37:56 Pat Name: SHERINE MARY Department: ER Room: [address] [place] [address] 7 Gender: F Spreader Operator: KETURAH : 2000 Requested By: ADITHYA CHUA Order Number: [id number] Reading MD: Jorge Daugherty Measurements Intervals [place] Rate: 72 P: 41 VA: 117 QRS: 45 QRSD: 76 T: 8 QT: 367 QTc: 402 Interpretive Statements Sinus rhythm Borderline short VA interval Probable left atrial enlargement Borderline T wave abnormalities Electronically Signed On 09-09-2024 21:08:08 PST by Jorge Daugherty Please click the below link to view image of tracing.
== END 2024-09-07 18:31 | disposition home or self-care (01) | DRG 880 ==
LOC: EDBD 18:28 → ER 18:28 → TELE 09-06 00:29 → EAST 09-06 02:57 → TELE-E-ADS 09-07 03:48
PROVIDERS: ADMIT Student in an Organized Health Care Education/Training Program; ATTEND Student in an Organized Health Care Education/Training Program
DX: F41.9 Anxiety disorder, unspecified (principal); M94.0 Chondrocostal junction syndrome [Tietze]; E28.2 Polycystic ovarian syndrome; R00.2 Palpitations; E05.90 Thyrotoxicosis, unspecified without thyrotoxic crisis or storm; J45.909 Unspecified asthma, uncomplicated; E66.811 Obesity, class 1; Z20.822 Contact with and (suspected) exposure to COVID-19; F41.0 Panic disorder [episodic paroxysmal anxiety]; Z68.34 Body mass index [BMI] 34.0-34.9, adult; Z83.3 Family history of diabetes mellitus; Z82.49 Family history of ischemic heart disease and other diseases of the circulatory system
CPT/HCPCS: 36415; 71045; 80048; 80053; 80307; 81001; 81025; 83735; 84443; 84484; 84702; 85025; 85652; 86141; 87426; 87804; 93005; 93306; 99291; G0378; J1885

== ENCOUNTER 2024-09-25 14:50 | Inpatient (IN) | payer SELFPAY ==
[~2024-09-25] VITALS: Ht 165.1 cm; Wt 76.0 kg
[~2024-09-25 14:50] MED LIST changes: +SERT25TA28 PO
[2024-09-25] MEDS: ASPirin 81 mg TAB PO ONE (15:06)
--- NOTE | 2024-09-25 15:23 | DVH ---
CHEST RADIOGRAPH Indication: Chest pain and palpitations Technique: Single frontal view of the chest was obtained COMPARISON: XY CHEST XRAY 1 VIEW on DOS: 09/06/24 FINDINGS: Lines and Tubes: None Lungs: Clear Pleura: No effusion. No pneumothorax. Cardiomediastinal contours: Unremarkable Bones: Unremarkable IMPRESSION: No acute disease.
--- NOTE | 2024-09-25 15:33 | ED.PDOC ---
HPI Comments 24y F who presents to the ED for chief complaint of palpitations. Pt states she has history of SVT and states she was on beta malou and states she was taken of medication 3 days prior. Pt states earlier this AM, she noted her apple watch caught her heart rate in the 170's and pt started to feel palpitations, chest pressure, and dizziness and called EMS. EMS arrived on scene and noted pt has stable vitals and heart rate was 90 and in sinus rhythm. EMS states en route to the ED, pt started to have heart rate ranging in the 150's but no medication was given prior to ED arrival. Pt in the ED, states she is continuing to have symptoms and has noted heart rate of 106 in the ED. Pt states she is continuing to have her associated dizziness, chest pressure and chills. Pt otherwise denies any other symptoms at this time. Chief Complaint: Chest Pain Time Seen by MD: 15:29 Primary Care Provider: UNKNOWN Reviewed Notes: Nurses Notes, Relief Man Notes, Medications, Allergies (NKDA ) Allergies: Coded Allergies: NO KNOWN ALLERGIES (Unverified , 06/08/24) Home Meds Active Scripts Sertraline Hcl (Sertraline Hcl) 25 Mg Tab, 1 TAB PO DAILY for 30 Days, #30 TAB 2 Refills Prov:SHUKRI BROCK RESIDENT 09/07/24 Alprazolam (Xanax) 0.5 Mg Tb, 1 TAB PO TID, #10 TAB Prov:HONORIO OSWALD PAC 06/09/24 Information Source: Patient, Emergency Med Personnel Mode of Arrival: EMS Brought in by: EMS Severity: Moderate Timing: Hours Duration: Since onset Prehospital treatment: None Quality: Pressure Onset: At Rest Cardiac Risk Factors: None (SVT) PE Risk Factors: None History of: Similar pain in past Modifying Factors: Nothing Associated Signs and Symptoms: Other (dizziness, chills) Past Medical History PAST MEDICAL HISTORY: Anxiety, Asthma, HTN Past Medical History (Other): PCOS, SVT Surgical History: Denies all surgeries 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 Family History Family History: Reviewed,noncontributory to illness Social History Smoker: Non-Smoker Alcohol: Denies ETOH Use Drugs: Denies Drug Use Lives In: Home Constitutional: reports: chills; denies: diaphoresis, fatigue, fever, malaise, sweats, weakness, others EENTM: denies: blurred vision, double vision, ear bleeding, ear discharge, ear drainage, ear pain, ear ringing, eye pain, eye redness, hearing loss, mouth pain, mouth swelling, nasal discharge, nose bleeding, nose congestion, nose pain, photophobia, tearing, throat pain, throat swelling, voice changes, others Respiratory: denies: cough, hemoptysis, orthopnea, SOB at rest, shortness of breath, SOB with excertion, stridor, wheezing, others Cardiovascular: reports: palpitations; denies: chest pain, dizzy spells, diaphoresis, Dyspnea on exertion, edema, irregular heart beat, left arm pain, lightheadedness, PND, syncope, others Gastrointestinal: denies: abdomen distended, abdominal pain, blood streaked bowels, constipated, diarrhea, dysphagia, difficulty swallowing, hematemesis, melena, nausea, poor appetite, poor fluid intake, rectal bleeding, rectal pain, vomiting, others Genitourinary: denies: abnormal vagina bleeding, burning, dyspareunia, dysuria, flank pain, frequency, hematuria, incontinence, pain, , vagina discharge, urgency, others Neurological: reports: dizziness; denies: fainting, headache, left sided numbness, left sided weakness, numbness, paresthesia, pre-existing deficit, right sided numbness, right sided weakness, seizure, speech problems, tingling, tremors, weakness, others Musculoskeletal: denies: back pain, gout, joint pain, joint swelling, muscle pain, muscle stiffness, neck pain, others Integumetry: denies: bruises, change in color, change in hair/nails, dryness, laceration, lesions, lumps, rash, wounds, others Allergic/Immunocompromised: denies: Difficulty Healing, Frequent Infections, Hives, Itching, others Hematologic/Lymphatic: denies: anemia, blood clots, easy bleeding, easy bruising, swollen glands, others Endocrine: denies: excessive hunger, excessive sweating, excessive thirst, excessive urination, flushing, intolerance to cold, intolerance to heat, unexplained weight gain, unexplained weight loss, others Psychiatric: denies: anxiety, bipolar disorder, depression, hopeless, panic disorder, schizophrenia, sleepless, suicidal, others All Other Systems: Reviewed and Negative Physical Exam General Appearance: Moderate Distress HEENT: Normal ENT Inspection, Pharynx Normal, TMs Normal Neck: Full Range of Motion, Non-Tender, Normal, Normal Inspection Respiratory: Chest Non-Tender, Lungs Clear, No Accessory Muscle Use, No Respiratory Distress, Normal Breath Sounds Cardiovascular: No Edema, No JVD, No Murmur, No Gallop, Tachycardia Breast Exam: Deferred Gastrointestinal: No Organomegaly, Non Tender, No Pulsatile Mass, Normal Bowel Sounds, Soft Genitalia: Deferred Pelvic: Deferred Rectal: Deferred Extremities: No calf tenderness, Normal capillary refill, No pedal edema Musculoskeletal : Apperance: Normal Neurologic: Alert, dry wall nailer II-XII nml as Tested, Motor Weakness, Normal Affect, Normal Mood, No Sensory Deficits Cerebellar Function: Normal Reflexes: Normal Skin: Dry, Normal Color, Warm Lymphatic: No Adenopathy EKG EKG : Pulse Rate (adult): 106 [place]: Normal Cardiac Rhythm: ST Block: None Hypertrophy: None ST: Normal Was a procedure done? Was a procedure done?: No CP Differential Dx Differential Diagnosis: A-fib, A-Flutter, Angina, Anxiety / Panic Attack, PSVT, Pulmonary Embolus, PVC's, Sinus Tachycardia Other Differential Diagnosis SVT Differential Diagnosis: HTN Essential, HTN Encephalopathy X-Ray, Labs, Meds, VS Vital Signs Date Time Temp Pulse Resp B/P (MAP) Pulse Ox O2 Delivery O2 Flow Rate FiO2 09/25/24 16:37 93 16 124/68 (86) 97 09/25/24 15:48 86 09/25/24 15:33 106 09/25/24 15:25 Room Air* 0 21 09/25/24 15:09 98.7 103 15 133/85 (101) 100 98.7 09/25/24 14:59 106 09/25/24 14:59 98.7 98 20 150/100 (117) 99 Lab Test 09/25/24 16:15 09/25/24 15:08 Range/Units Magnesium Level Pending Troponin I High Sensitivity < 3 L < 3 L </=34 ng/L White Blood Count 6.7 4.4-10.8 10^3/uL Red Blood Count 4.91 4.0-5.20 10^6/uL Hemoglobin 15.0 12.2-16.2 g/dL Hematocrit 44.7 36.0-46.0 % Mean Corpuscular Volume 91.2 80.0-100.0 fL Mean Corpuscular Hemoglobin 30.6 28.0-32.0 pg Mean Corpuscular Hemoglobin Concent 33.5 32.0-36.0 g/dL Red Cell Distribution Width 13.0 11.8-14.3 % Platelet Count 261 140-450 10^3/uL Mean Platelet Volume 9.2 6.9-10.8 fL Neutrophils (%) (Auto) 51.2 37.0-80.0 % Lymphocytes (%) (Auto) 37.6 10.0-50.0 % Monocytes (%) (Auto) 8.4 0.0-12.0 % Eosinophils (%) (Auto) 2.4 0.0-7.0 % Basophils (%) (Auto) 0.4 0.0-2.0 % Neutrophils # (Auto) 3.4 1.6-8.6 10 ^3/uL Lymphocytes # (Auto) 2.5 0.4-5.4 10 ^3/uL Monocytes # (Auto) 0.6 0-1.3 10 ^3/uL Eosinophils # (Auto) 0.2 0-0.8 10 ^3/uL Basophils # (Auto) 0 0-0.2 10 ^3/uL Nucleated Red Blood Cells 0.2 % Sodium Level 139 136-145 mmol/L Potassium Level 4.3 3.5-5.1 mmol/L Chloride Level 105 98-107 mmol/L Carbon Dioxide Level 26 20-31 mmol/L Anion Gap 8 5-15 Blood Urea Nitrogen 8 L 9-23 mg/dL Creatinine 0.88 0.550-1.02 mg/dL Glomerular Filtration Rate Calc 95 >90 mL/min BUN/Creatinine Ratio 9.1 L 10.0-20.0 Serum Glucose 114 H 74-106 mg/dL Calcium Level 9.4 8.7-10.4 mg/dL Total Bilirubin 0.2 0.2-1.0 mg/dL Aspartate Amino Transferase (AST) 22 13-40 U/L Alanine Aminotransferase (ALT) 17 7-40 U/L Alkaline Phosphatase 86 46-116 U/L Total Protein 6.9 5.7-8.2 g/dL Albumin 4.4 3.2-4.8 g/dL Current Medications Medications (Trade) Dose Ordered Sig/Fransisco Route Start Time Stop Time Status Last Admin Aspirin 162 mg ONCE ONCE PO 09/25/24 15:00 09/25/24 15:04 DC 09/25/24 15:06 Patient's CBC and chemistry panel are within normal limits. The magnesium level is pending The troponin level x2 is within normal limits The patient was given aspirin 162 mg by mouth The chest x-ray shows: No sign of any abnormalities The patient was being admitted at this time. We discussed the findings with the patient and she is in agreement with the management. A cardiology consult will also be obtained. Images Reviewed?: Images reviewed and evaluated by me Time of 1ST Reevaluation: 16:00 Reevaluation 1ST: Unchanged Patient Education/Counseling: Diagnosis, Treatment, Prognosis Family Education/Counseling: No Family Present Additional Information - I reviewed the following notes from patient's past medical encounters: - The following tests were ordered, and results were reviewed by me: (Labs, X- Ray, EKG):cbc, cmp, trop x3, ekg x3, mag, chest x-ray - Additional information was gathered from interviewing the following independent Historian: (Family, Other Providers, EMT): EMS - I reviewed and agreed with the following test results read by other provider: (X-ray, CT, US): radiologist - I discussed treatments and results with medical personnel and: (consultants, family): none Departure 1 Departure Time of Disposition: 17:02 Impression: Primary Impression: SVT (supraventricular tachycardia) Additional Impression: Acute chest pain Disposition: 09 ADMITTED INPATIENT Admit to: Tele Condition: Fair Critical Care Note Critical Care Time?: Yes (45 min-critical care time only) Stability Stability form required: Yes Unstable for transfer: Telemetry monitoring (Telemetry monitoring required), ED Physician Assesment (Clinical assesment) Heart Score Heart Score: Heart Score Response (Comments) Value History Slightly Suspicious 0 EKG Normal 0 Age <45 0 Risk Factors 1 or 2 risk factors 1 Troponin Normal limit 0 Total 1 I personally scribed for JED MUSTAFA MD ([email or web address]) on 09/25/24 at 15:33. Electronically submitted by Renate Ferro ([email or web address]). JED MUSTAFA MD Sep 25, 2024 15:33
[2024-09-25 15:37] LABS: Basophils # (auto) 0 10 ^3/uL (0-0.2); Basophils % (auto) 0.4 % (0.0-2.0); Eosinophils # (auto) 0.2 10 ^3/uL (0-0.8); Eosinophils % (auto) 2.4 % (0.0-7.0); Hematocrit 44.7 % (36.0-46.0); Lymphocytes # (auto) 2.5 10 ^3/uL (0.4-5.4); Lymphocytes % (auto) 37.6 % (10.0-50.0); Mean Corpuscular Hemoglobin 30.6 pg (28.0-32.0); Mean Corpuscular Hgb Conc. 33.5 g/dL (32.0-36.0); Mean Corpuscular Volume 91.2 fL (80.0-100.0); Monocytes # (auto) 0.6 10 ^3/uL (0-1.3); Monocytes % (auto) 8.4 % (0.0-12.0); Neutrophils # (auto) 3.4 10 ^3/uL (1.6-8.6); Neutrophils % (auto) 51.2 % (37.0-80.0); Nucleated Red Blood Cells % 0.2 %; Platelet Count (auto) 261 10^3/uL (140-450); Red Blood Cells 4.91 10^6/uL (4.0-5.20); White Blood Cell 6.7 10^3/uL (4.4-10.8)
[2024-09-25 15:43] LABS: Alanine Aminotransferase 17 U/L (7-40); Albumin 4.4 g/dL (3.2-4.8); Alkaline Phosphatase 86 U/L (46-116); Anion Gap 8 (5-15); Aspartate Aminotransferase 22 U/L (13-40); BUN/Creatinine Ratio 9.1 (10.0-20.0); Calcium 9.4 mg/dL (8.7-10.4); Carbon Dioxide 26 mmol/L (20-31); Chloride 105 mmol/L (98-107); Potassium 4.3 mmol/L (3.5-5.1); Sodium 139 mmol/L (136-145); Total Protein 6.9 g/dL (5.7-8.2)
[2024-09-25 15:46] LABS: Bilirubin, Total 0.2 mg/dL (0.2-1.0); Blood Urea Nitrogen 8 mg/dL (9-23); Glucose 114 mg/dL (74-106)
[2024-09-25] MEDS: MORPHINE SULFATE 4 MG/ML SYR/VIAL IV ONE (18:14)
[2024-09-25] MEDS: ONDANSETRON HCL 4 MG/2 ML VIAL IV ONE (18:14)
[2024-09-25] MEDS: ADENOSINE 6 MG/2 ML INJ IV ONE ×4 (18:22→18:28)
[2024-09-25] MEDS: METOPROLOL TARTRATE 1MG/1ML-5ML VIAL IV ONE ×2 (18:27→18:48)
--- NOTE | 2024-09-25 19:07 | ECG ---
[facility] Test Date: 2024-09-25 Test Time: 14:56:19 Pat Name: SHERINE MARY Department: ed Room: [address] [place] [address] Gender: F Assembler Body: jay jay : 2000 Requested By: JED MUSTAFA Order Number: [id number] Reading MD: Jorge Daugherty Measurements Intervals [place] Rate: 106 P: 82 SC: 131 QRS: 54 QRSD: 77 T: 15 QT: 332 QTc: 441 Interpretive Statements Sinus tachycardia Ventricular premature complex Biatrial enlargement Baseline wander in lead(s) V4 Electronically Signed On 09-26-2024 22:17:03 PST by Jorge Daugherty Please click the below link to view image of tracing.
--- NOTE | 2024-09-25 19:08 | ECG ---
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
[2024-09-25 19:30] VITALS: PULSE 77; RESP 18; O2SAT 98
[2024-09-25] MEDS: SODIUM CHLORIDE 0.9% 1,000 ML IV ONE (20:09)
[2024-09-25 21:27] LABS: Urine Bacteria None Seen /hpf (None Seen)
[2024-09-25] MEDS ORDERED: ONDANSETRON HCL 4 MG/2 ML VIAL IV PRN (21:30)
[2024-09-25] MEDS ORDERED: MORPHINE SULFATE INJ 2 MG/ml SYRG IV PRN ×2 (21:30)
[2024-09-25] MEDS ORDERED: NITROGLYCERIN 0.4 MG SL TAB SL PRN (21:30)
[2024-09-25 21:38] LABS: Urine Blood 3+ /uL (Negative); Urine Clarity Clear (Clear); Urine Color Colorless (Yellow); Urine Protein, UAD TRACE (Negative); Urine Specific Gravity 1.021 (1.001-1.035); Urine Squamous Epithelial Cell FEW /hpf (<5); Urine Urobilinogen Normal (Negative); Urine WBC 5 /HPF (0-5)
[2024-09-25] MEDS: SODIUM CHLOR 0.9% PF (SALINE LOCK) 10ML VIAL/SYR IV SCH (22:00)
--- NOTE | 2024-09-25 23:51 | DVHHPRES ---
History of Present Illness Resident Creating Document: ALEX HOPKINS RESIDENT History of Present Illness SHERINE MARY a 24-year-old female with a PMH of sinus tachycardia, asthma, anxiety, panic attacks, PCOS presented to the ED with the chief complaints of dizziness, palpitations. Patient reports she has been diagnosed with a sinus tachycardia 1 year ago on beta-blockers but she stopped taking 4 days ago since then she has been having dizziness palpitations. Pt reported earlier this AM, she noted her apple watch caught her heart rate in the 170's and pt started to feel palpitations, chest pressure, and dizziness and called EMS. EMS arrived on scene and noted pt has stable vitals and heart rate was 90 and in sinus rhythm. EMS states en route to the ED, pt started to have heart rate ranging in the 150's but no medication was given prior to ED arrival. PMH: Sinus tachycardic, anxiety, asthma, panic attacks, PCOS PSH: Denies Family history: Noncontributory Social history: Lives with a fiancee. Denies smoking, alcohol and other drug abuse allergies: No known allergies Review of Systems Constitutional: No: Fever, Chills, Sweats, Weakness, Malaise, Other Eyes: No: Pain, Vision change, Conjunctivae inflammation, Eyelid inflammation, Other, Redness ENT: No: Ear pain, Ear discharge, Nose pain, Nose discharge, Nose congestion, Mouth pain, Mouth swelling, Throat pain, Throat swelling, Other Respiratory: No: Cough, Dry, Shortness of breath, SOB with excertion, Wheezing, Hemoptysis, Pleuritic Pain, Sputum, Wheezing, Other Cardiovascular: Chest Pain, Palpitations, Lt Headedness Gastrointestinal: No: Nausea, Vomiting, Abdominal Pain, Diarrhea, Constipation, Melena, Hematochezia, Other Genitourinary: No Dysuria, No Frequency, No Incontinence, No Hematuria, No Retention, No Other Skin: No: Rash, Lesions, Jaundice, Bruising, Other Neurological: No: Weakness, Numbness, Incoordination, Change in speech, Confusion, Seizures, Other Allergies: Coded Allergies: NO KNOWN ALLERGIES (Unverified , 06/08/24) Medications Current Medications Medications Dose Ordered Sig/Fransisco Route Start Time Stop Time Status Last Admin Dose Admin Sodium Chloride 10 ml Q8HR IV 09/25/24 22:00 Sodium Chloride 1,000 ml @ 60 mls/hr [id number] IV 09/25/24 21:30 Ondansetron HCl 4 mg Q4HP PRN IV 09/25/24 21:30 Enoxaparin Sodium 40 mg DAILY SC 09/26/24 10:00 Acetaminophen 650 mg Q6HP PRN PO 09/25/24 21:30 Morphine Sulfate 2 mg Q4HPRN PRN IV 09/25/24 21:30 Nitroglycerin 0.4 mg Q5MINP PRN SL 09/25/24 21:30 Morphine Sulfate 2 mg Q30M PRN IV 09/25/24 21:30 Exam Vital Signs Vital Signs Date Time Temp Pulse Resp B/P (MAP) Pulse Ox O2 Delivery O2 Flow Rate FiO2 09/25/24 19:30 98.0 77 18 139/92 (108) 98 98.0 09/25/24 19:30 Room Air* 0 21 Exam Pt is lying on bed General Appearance: Alert, Oriented X3, Cooperative, Not in acute distress HEENT: Atraumatic, Mucous membranes moist/pink Respiratory: Clear to auscultation, Normal air movement, No added sounds Cardiovascular: Regular rate, Normal S1, Normal S2, No murmurs Abdominal: Active bowel sounds, Soft, no distention, no tenderness Extremities: No edema, Normal pulses, No tenderness/swelling Skin: No Significant rash, except past surgical scars Neuro: Normal speech, sensorimotor deficits none Psych/Mental Status: Mental status NL, Mood NL Nurse was there as sharperone during examination Labs/Xrays Labs Test 09/25/24 18:00 09/25/24 16:15 09/25/24 15:08 Range/Units Urine Color Colorless Yellow Urine Clarity Clear Clear Urine pH 8.0 5.0-9.0 Urine Specific [place] 1.021 1.001-1.035 Urine Protein Trace H Negative Urine Ketones Negative Negative Urine Blood 3+ H Negative /uL Urine Nitrite Negative Negative Urine Bilirubin Negative Negative Urine Urobilinogen Normal Negative mg/dL Urine Leukocyte Esterase Negative Negative /uL Urine RBC 199 0 - 4 /hpf Urine Microscopic WBC 5 0-5 /HPF Urine Squamous Epithelial Cells Few <5 /hpf Urine Bacteria None seen None Seen /hpf Urine Glucose Normal Normal mg/dL Magnesium Level 1.8 1.6-2.6 mg/dL Troponin I High Sensitivity < 3 L </=34 ng/L White Blood Count 6.7 4.4-10.8 10^3/uL Red Blood Count 4.91 4.0-5.20 10^6/uL Hemoglobin 15.0 12.2-16.2 g/dL Hematocrit 44.7 36.0-46.0 % Mean Corpuscular Volume 91.2 80.0-100.0 fL Mean Corpuscular Hemoglobin 30.6 28.0-32.0 pg Mean Corpuscular Hemoglobin Concent 33.5 32.0-36.0 g/dL Red Cell Distribution Width 13.0 11.8-14.3 % Platelet Count 261 140-450 10^3/uL Mean Platelet Volume 9.2 6.9-10.8 fL Neutrophils (%) (Auto) 51.2 37.0-80.0 % Lymphocytes (%) (Auto) 37.6 10.0-50.0 % Monocytes (%) (Auto) 8.4 0.0-12.0 % Eosinophils (%) (Auto) 2.4 0.0-7.0 % Basophils (%) (Auto) 0.4 0.0-2.0 % Neutrophils # (Auto) 3.4 1.6-8.6 10 ^3/uL Lymphocytes # (Auto) 2.5 0.4-5.4 10 ^3/uL Monocytes # (Auto) 0.6 0-1.3 10 ^3/uL Eosinophils # (Auto) 0.2 0-0.8 10 ^3/uL Basophils # (Auto) 0 0-0.2 10 ^3/uL Nucleated Red Blood Cells 0.2 % Sodium Level 139 136-145 mmol/L Potassium Level 4.3 3.5-5.1 mmol/L Chloride Level 105 98-107 mmol/L Carbon Dioxide Level 26 20-31 mmol/L Anion Gap 8 5-15 Blood Urea Nitrogen 8 L 9-23 mg/dL Creatinine 0.88 0.550-1.02 mg/dL Glomerular Filtration Rate Calc 95 >90 mL/min BUN/Creatinine Ratio 9.1 L 10.0-20.0 Serum Glucose 114 H 74-106 mg/dL Calcium Level 9.4 8.7-10.4 mg/dL Total Bilirubin 0.2 0.2-1.0 mg/dL Aspartate Amino Transferase (AST) 22 13-40 U/L Alanine Aminotransferase (ALT) 17 7-40 U/L Alkaline Phosphatase 86 46-116 U/L Total Protein 6.9 5.7-8.2 g/dL Albumin 4.4 3.2-4.8 g/dL Thyroid Stimulating Hormone (TSH) 1.48 0.55-4.78 uIU/mL Plasma/Serum Blood Alcohol < 3.0 <10 mg/dL Assessment/Plan Assessment/Plan # Chest pain rule out ACS -reviewed EKG no ST changes -troponins x2 were negative -chest pain protocol # SVT VS sinus tach -EKG showed sinus tachy -given adenosine -normal sinus rhythm now -continuously monitored on telemetry # panic attacks, anxiety -resume home meds # asthma not in exacerbation PUD PPX: Not indicated VTE PPX: Lovenox Diet: Cardiac diet Goals of care discussed with the patient for more than 29 minutes: Full code status Case discussed with Dr. Weber, patient and nurse. Plan discussed with: Patient, Other (Andrea and RN) My Orders Orders - ALEX HOPKINS RESIDENT Procedure Category Date Status Time Admit ADMIT 09/25/24 Transmitted 21:28 Allergies KENNEY 09/25/24 In Process 21:28 Code Status CODE 09/25/24 Transmitted 21:28 Sodium Chloride Lock PHA 09/25/24 In Process (Saline Lock Ns) 22:00 Sodium Chloride 0.9% PHA 09/25/24 In Process 21:30 Ondansetron Hcl PHA 09/25/24 In Process (Zofran) 21:30 Enoxaparin Sodium PHA 09/26/24 In Process (Lovenox) 10:00 Complete Blood Count LAB 09/26/24 Verified 04:00 Comprehensive LAB 09/26/24 Verified Metabolic Panel 04:00 Cardiac DIET 09/26/24 Transmitted Diet-2gna,Lofat,Lochol Breakfast Condition: Stable KENNEY 09/25/24 In Process 21:28 Acetaminophen Tablet PHA 09/25/24 In Process (Tylenol Tablet) 21:30 Morphine Sulfate PHA 09/25/24 In Process Injection 21:30 Nitroglycerin PHA 09/25/24 In Process Sublingual (Ntrostat 21:30 Morphine Sulfate PHA 09/25/24 In Process Injection 21:30 Oxygen By Nasal RT 09/25/24 Transmitted Cannula 21:28 Stat Ekg For Chest KENNEY 09/25/24 In Process Pain 21:28 Notify Md Of Changes [facility] 09/25/24 In Process From Base 21:28 Cold Header For [facility] 09/25/24 In Process 24 Hours 21:28 Emergency Dysrhythmia [facility] 09/25/24 In Process Protocol 21:28 Rhythm Strips Once [facility] 09/25/24 In Process Every Shift 21:28 Rapid Influenza A&B LAB 09/25/24 Logged 22:03 Covid19 Antigen [facility] 09/25/24 Logged Drug Screen LAB 09/25/24 Logged 22:03 Date of Service: Sep 25, 2024 Billing Provider: KALYN WEBER MD Common Visit Codes: [id number] INP/OBS CARE (HIGH) ALEX HOPKINS RESIDENT Sep 25, 2024 23:51 KALYN WEBER MD Sep 26, 2024 13:03
[2024-09-26] MEDS: ACETAMINOPHEN 325 MG TAB PO PRN (00:07)
[2024-09-26] MEDS: SODIUM CHLORIDE 0.9% 1,000 ML IV SCH (00:07)
[2024-09-26] MEDS: HYDROcodone-ACET 5/325MG TAB PO ONE (04:31)
[2024-09-26 06:00] VITALS: TEMP 98.7
[2024-09-26] MEDS: ALPRAZolam 0.5 MG TAB PO SCH (06:15)
[2024-09-26 07:35] LABS: Basophils # (auto) 0 10 ^3/uL (0-0.2); Basophils % (auto) 0.6 % (0.0-2.0); Eosinophils # (auto) 0.1 10 ^3/uL (0-0.8); Eosinophils % (auto) 1.2 % (0.0-7.0); Hematocrit 42.8 % (36.0-46.0); Hemoglobin 14.4 g/dL (12.2-16.2); Lymphocytes # (auto) 1.6 10 ^3/uL (0.4-5.4); Lymphocytes % (auto) 29.8 % (10.0-50.0); Mean Corpuscular Hemoglobin 30.8 pg (28.0-32.0); Mean Corpuscular Hgb Conc. 33.7 g/dL (32.0-36.0); Mean Corpuscular Volume 91.3 fL (80.0-100.0); Monocytes # (auto) 0.4 10 ^3/uL (0-1.3); Neutrophils # (auto) 3.2 10 ^3/uL (1.6-8.6); Neutrophils % (auto) 60.4 % (37.0-80.0); Nucleated Red Blood Cells % 0.1 %; Platelet Count (auto) 249 10^3/uL (140-450); Red Blood Cells 4.69 10^6/uL (4.0-5.20); Red Cell Distribution Width 13.4 % (11.8-14.3); White Blood Cell 5.2 10^3/uL (4.4-10.8)
--- NOTE | 2024-09-26 07:42 | DVHPNRES ---
Progress Note Objective vital signs Vital Sign Date Time Temp Pulse Resp B/P (MAP) Pulse Ox O2 Delivery O2 Flow Rate FiO2 09/26/24 06:00 98.7 60 15 113/67 (82) 99 98.7 09/25/24 19:30 Room Air* 0 21 Total Intake and Output 09/25/24 09/25/24 09/26/24 15:00 23:00 07:00 Intake Total 1000 ml 353 ml Balance 1000 ml 353 ml medications Current Medications Medications Dose Ordered Sig/Fransisco Route Start Time Stop Time Status Last Admin Dose Admin Sodium Chloride 10 ml Q8HR IV 09/25/24 22:00 09/26/24 06:05 10 ML Sodium Chloride 1,000 ml @ 60 mls/hr [id number] IV 09/25/24 21:30 09/26/24 00:07 60 MLS/HR Ondansetron HCl 4 mg Q4HP PRN IV 09/25/24 21:30 Acetaminophen 650 mg Q6HP PRN PO 09/25/24 21:30 09/26/24 00:07 650 MG Morphine Sulfate 2 mg Q4HPRN PRN IV 09/25/24 21:30 Nitroglycerin 0.4 mg Q5MINP PRN SL 09/25/24 21:30 Alprazolam 0.5 mg TID PO 09/26/24 06:00 09/26/24 06:15 0.5 MG Sertraline HCl 25 mg DAILY PO 09/26/24 10:00 laboratory and microbiology Laboratory Tests 09/26/24 07:17 Test 09/26/24 07:17 Range/Units Serum Glucose Pending CARRIE TAYLOR RESIDENT Sep 26, 2024 07:42
[2024-09-26] MEDS: MAGNESIUM OXIDE 400 MG TAB PO ONE (07:44)
[2024-09-26 07:56] LABS: COVID19 ANTIGEN SOFIA FIA NEGATIVE (NEGATIVE)
[2024-09-26 07:57] LABS: Rapid Influenza A Negative (Negative); Rapid Influenza B Negative (Negative)
[2024-09-26 08:01] LABS: Alanine Aminotransferase 14 U/L (7-40); Albumin 4.2 g/dL (3.2-4.8); Alkaline Phosphatase 80 U/L (46-116); Anion Gap 6 (5-15); BUN/Creatinine Ratio 8.8 (10.0-20.0); Bilirubin, Total 0.5 mg/dL (0.2-1.0); Carbon Dioxide 26 mmol/L (20-31); Glucose 99 mg/dL (74-106); Potassium 4.1 mmol/L (3.5-5.1); Sodium 140 mmol/L (136-145); Total Protein 6.6 g/dL (5.7-8.2)
[2024-09-26 08:06] LABS: Aspartate Aminotransferase < 8 U/L (13-40); Blood Urea Nitrogen 7 mg/dL (9-23); Chloride 108 mmol/L (98-107)
[2024-09-26 08:08] VITALS: BP 115/68; PULSE 95; RESP 17; O2SAT 99
[2024-09-26] MEDS ORDERED: ENOXAPARIN SOD 40 MG/0.4 ML SYRINGE SC SCH (10:00)
[2024-09-26] MEDS ORDERED: SERTRALINE HCL 50 MG TAB PO SCH (10:00)
--- NOTE | 2024-09-26 11:38 | DVHDSRES ---
Discharge Summary Date of Admission Resident Creating Document: CARRIE TAYLOR RESIDENT Sep 25, 2024 at 21:28 Date of Discharge: Sep 26, 2024 Admitting Diagnosis Palpitation Labs/Diagnostic Data: Laboratory Results Test 09/26/24 07:17 09/26/24 06:10 09/25/24 18:00 09/25/24 16:15 White Blood Count 5.2 10^3/uL (4.4-10.8) Red Blood Count 4.69 10^6/uL (4.0-5.20) Hemoglobin 14.4 g/dL (12.2-16.2) Hematocrit 42.8 % (36.0-46.0) Mean Corpuscular Volume 91.3 fL (80.0-100.0) Mean Corpuscular Hemoglobin 30.8 pg (28.0-32.0) Mean Corpuscular Hemoglobin Concent 33.7 g/dL (32.0-36.0) Red Cell Distribution Width 13.4 % (11.8-14.3) Platelet Count 249 10^3/uL (140-450) Mean Platelet Volume 8.7 fL (6.9-10.8) Neutrophils (%) (Auto) 60.4 % (37.0-80.0) Lymphocytes (%) (Auto) 29.8 % (10.0-50.0) Monocytes (%) (Auto) 8.0 % (0.0-12.0) Eosinophils (%) (Auto) 1.2 % (0.0-7.0) Basophils (%) (Auto) 0.6 % (0.0-2.0) Neutrophils # (Auto) 3.2 10 ^3/uL (1.6-8.6) Lymphocytes # (Auto) 1.6 10 ^3/uL (0.4-5.4) Monocytes # (Auto) 0.4 10 ^3/uL (0-1.3) Eosinophils # (Auto) 0.1 10 ^3/uL (0-0.8) Basophils # (Auto) 0 10 ^3/uL (0-0.2) Nucleated Red Blood Cells 0.1 % Sodium Level 140 mmol/L (136-145) Potassium Level 4.1 mmol/L (3.5-5.1) Chloride Level 108 mmol/L (98-107) Carbon Dioxide Level 26 mmol/L (20-31) Anion Gap 6 (5-15) Blood Urea Nitrogen 7 mg/dL (9-23) Creatinine 0.80 mg/dL (0.550-1.02) Glomerular Filtration Rate Calc 107 mL/min (>90) BUN/Creatinine Ratio 8.8 (10.0-20.0) Serum Glucose 99 mg/dL (74-106) Calcium Level 9.0 mg/dL (8.7-10.4) Total Bilirubin 0.5 mg/dL (0.2-1.0) Aspartate Amino Transferase (AST) < 8 U/L (13-40) Alanine Aminotransferase (ALT) 14 U/L (7-40) Alkaline Phosphatase 80 U/L (46-116) Total Protein 6.6 g/dL (5.7-8.2) Albumin 4.2 g/dL (3.2-4.8) Influenza Type A Antigen Negative (Negative) Influenza Type B Antigen Negative (Negative) SARS-CoV-2 Antigen (Rapid) Negative (NEGATIVE) Urine Color Colorless (Yellow) Urine Clarity Clear (Clear) Urine pH 8.0 (5.0-9.0) Urine Specific [place] 1.021 (1.001-1.035) Urine Protein Trace (Negative) Urine Ketones Negative (Negative) Urine Blood 3+ /uL (Negative) Urine Nitrite Negative (Negative) Urine Bilirubin Negative (Negative) Urine Urobilinogen Normal mg/dL (Negative) Urine Leukocyte Esterase Negative /uL (Negative) Urine RBC 199 /hpf (0 - 4) Urine Microscopic WBC 5 /HPF (0-5) Urine Squamous Epithelial Cells Few /hpf (<5) Urine Bacteria None seen /hpf (None Seen) Urine Glucose Normal mg/dL (Normal) Magnesium Level 1.8 mg/dL (1.6-2.6) Troponin I High Sensitivity < 3 ng/L (</=34) Test 09/25/24 15:08 Thyroid Stimulating Hormone (TSH) 1.48 uIU/mL (0.55-4.78) Plasma/Serum Blood Alcohol < 3.0 mg/dL (<10) Other Laboratory Tests 09/26/24 07:17 Brief Hx & Hospital Course: SHERINE MARY a 24-year-old female with a PMH of sinus tachycardia, asthma, anxiety, panic attacks, PCOS presented to the ED with the chief complaints of dizziness, palpitations. Patient reports she has been diagnosed with a sinus tachycardia 1 year ago on beta-blockers but she stopped taking 4 days ago since then she has been having dizziness palpitations. Pt reported earlier this AM, she noted her apple watch caught her heart rate in the 170's and pt started to feel palpitations, chest pressure, and dizziness and called EMS. EMS arrived on scene and noted pt has stable vitals and heart rate was 90 and in sinus rhythm. EMS states en route to the ED, pt started to have heart rate ranging in the 150's but no medication was given prior to ED arrival. Hospital course: EKG showed no ST changes, slightly shortened GA and normal sinus tachycardia. Troponins x2 were negative. Patient was given 1 dose of adenosine. Patient continued to remain in sinus rhythm with heart rate between 60 to 80s. Home medications were also resumed. However, patient left against medical advice before further management and treatment could be completed. Condition at Discharge: Undetermined Final Diagnosis/Problems List ruled out ACS Supraventricular tachycardia versus sinus tachycardia Panic disorder Anxiety Asthma, currently not in exacerbation Discharge Disposition: AMA Discharge Statement: "Patient was advised to return to the ER or call 911 if any headaches, dizziness, shortness of breath, chest pain, abdominal pain, bleeding, fevers, or worsening of medical condition. Patient was counseled about treatment plan, medications, possible side effects, patientverbalized understanding. All questions were answered to the best of my ability. This discharge took greater then 30 minutes in planning, reviewing documentation, counseling the patient, and discussing with other team members." ASSESSMENT ASSESSMENT Assessment Date of Service: Sep 26, 2024 Billing Provider: DANIEL REDDY MD Common Visit Codes: [id number]/OBS DISCH DAY >30min CARRIE TAYLOR Sep 26, 2024 11:38 DANIEL REDDY MD Sep 27, 2024 16:02
--- NOTE | 2024-09-27 11:32 | ECG ---
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
== END 2024-09-26 10:10 | disposition left against medical advice (07) | DRG 310 ==
LOC: EDBD 14:50 → ER 14:50 → OVERFLOW 21:28
PROVIDERS: ADMIT Student in an Organized Health Care Education/Training Program; ATTEND Student in an Organized Health Care Education/Training Program
DX: I47.10 Supraventricular tachycardia, unspecified (principal); J45.909 Unspecified asthma, uncomplicated; Z53.29 Procedure and treatment not carried out because of patient's decision for other reasons; F41.0 Panic disorder [episodic paroxysmal anxiety]; E28.2 Polycystic ovarian syndrome; Z79.899 Other long term (current) drug therapy
CPT/HCPCS: 36415; 71045; 80053; 80320; 81001; 83735; 84443; 84484; 85025; 87426; 87804; 93005; 96361; 96374; 96375; 99291; G0378; J0153; J2405

== ENCOUNTER 2024-10-24 15:02 | Emergency (ER) | payer SELFPAY ==
[~2024-10-24] VITALS: Ht 165.1 cm; Wt 103.8 kg
--- NOTE | 2024-10-24 15:31 | ED.PDOC ---
[facility] OFFICER HPI Comments 24 y/o F, with PMHX of PCOS, anxiety, asthma, and HTN presents to the ED for CC of pelvic pain. Patient states, that she has been experiencing pelvic pain with associated symptoms of bilateral hand weakness and fatigue. Patient relays, pain is not the same in nature as when having a PCOS flare up. Patient denies hematuria, fever, flank pain, back pain, or dizziness. No other symptoms or modifying factors at this time. Chief Complaint: Pelvic Pain Time Seen by MD: 15:20 Reviewed Notes: Nurses Notes, Medications, Allergies Allergies: Coded Allergies: NO KNOWN ALLERGIES (Unverified , 06/08/24) Home Meds Active Scripts Acetaminophen (Acetaminophen) 500 Mg Tab, 500 MG PO Q4HP PRN, #30 TAB Prov:HONORIO OSWALD 10/24/24 Ondansetron Odt 4MG Tab (ZOFRAN PO) 4 Mg Tb, 4 MG PO Q6HP PRN, #15 TAB ODT TAB-DISSOLVE IN MOUTH, THEN SWALLOW Prov:HONORIO OSWALD 10/24/24 Ibuprofen Micronized (Ibuprofen) 800 Mg Tab, 800 MG PO Q8HP PRN, #20 TAB Prov:HONORIO OSWALD PAC 10/24/24 Sertraline Hcl (Sertraline Hcl) 25 Mg Tab, 1 TAB PO DAILY for 30 Days, #30 TAB 2 Refills Prov:SHUKRI BROCK RESIDENT 09/07/24 Alprazolam (Xanax) 0.5 Mg Tb, 1 TAB PO TID, #10 TAB Prov:HONORIO OSWALD PAC 06/09/24 Information Source: Patient Mode of Arrival: Ambulatory Timing: Hours Severity: None Vaginal Discharge: None Vaginal Lesions: None Vaginal Mass: None Last Consensual Eleva: Unknown Control: None Blood Type: Unknown Past Medical History PAST MEDICAL HISTORY: Anxiety, Asthma, HTN Past Medical History (Other): PCOS Surgical History: Denies all surgeries 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 Family History Family History: Reviewed,noncontributory to illness Social History Smoker: Non-Smoker Alcohol: Denies ETOH Use Drugs: Denies Drug Use Lives In: Home Constitutional: reports: fatigue, weakness; denies: chills, diaphoresis, fever, malaise, sweats, others EENTM: denies: blurred vision, double vision, ear bleeding, ear discharge, ear drainage, ear pain, ear ringing, eye pain, eye redness, hearing loss, mouth pain, mouth swelling, nasal discharge, nose bleeding, nose congestion, nose pain, photophobia, tearing, throat pain, throat swelling, voice changes, others Respiratory: denies: cough, hemoptysis, orthopnea, SOB at rest, shortness of breath, SOB with excertion, stridor, wheezing, others Cardiovascular: denies: chest pain, dizzy spells, diaphoresis, Dyspnea on exertion, edema, irregular heart beat, left arm pain, lightheadedness, palpitations, PND, syncope, others Gastrointestinal: denies: abdomen distended, abdominal pain, blood streaked bowels, constipated, diarrhea, dysphagia, difficulty swallowing, hematemesis, melena, nausea, poor appetite, poor fluid intake, rectal bleeding, rectal pain, vomiting, others Genitourinary: reports: others (pelvic pain); denies: abnormal vagina bleeding, burning, dyspareunia, dysuria, flank pain, frequency, hematuria, incontinence, pain, , vagina discharge, urgency Neurological: denies: dizziness, fainting, headache, left sided numbness, left sided weakness, numbness, paresthesia, pre-existing deficit, right sided numbness, right sided weakness, seizure, speech problems, tingling, tremors, weakness, others Musculoskeletal: denies: back pain, gout, joint pain, joint swelling, muscle pain, muscle stiffness, neck pain, others Integumetry: denies: bruises, change in color, change in hair/nails, dryness, laceration, lesions, lumps, rash, wounds, others Allergic/Immunocompromised: denies: Difficulty Healing, Frequent Infections, Hives, Itching, others Hematologic/Lymphatic: denies: anemia, blood clots, easy bleeding, easy bruising, swollen glands, others Endocrine: denies: excessive hunger, excessive sweating, excessive thirst, excessive urination, flushing, intolerance to cold, intolerance to heat, unexplained weight gain, unexplained weight loss, others Psychiatric: denies: anxiety, bipolar disorder, depression, hopeless, panic disorder, schizophrenia, sleepless, suicidal, others All Other Systems: Reviewed and Negative Physical Exam General Appearance: Moderate Distress ( [id number] distress at time of evaluation. Patient did not look toxic.), Normal HEENT: Normal ENT Inspection, Pharynx Normal, TMs Normal Neck: Full Range of Motion, Non-Tender, Normal, Normal Inspection Respiratory: Chest Non-Tender, Lungs Clear, No Accessory Muscle Use, No Respiratory Distress, Normal Breath Sounds Cardiovascular: No Edema, No JVD, No Murmur, No Gallop, Normal Peripheral Pulses, Regular Rate/Rhythm Breast Exam: Deferred Gastrointestinal: No Pulsatile Mass, Normal Bowel Sounds, Soft Genitalia: Deferred Pelvic: Other ( Diffuse bilateral pelvic tenderness to palpation. Difficult to assess due to body habitus. No pulsatile masses noted. No rebound noted.) Rectal: Deferred Extremities: No calf tenderness, Normal capillary refill, Normal inspection, Normal range of motion, Non-tender, No pedal edema Neurologic: Alert, No Motor Deficits, Normal Affect, Normal Mood, No Sensory Deficits Cerebellar Function: Normal Reflexes: Normal Skin: Dry, Normal Color, Warm Lymphatic: No Adenopathy Was a procedure done? Was a procedure done?: No Differential Diagnosis (OPERATIONS DISPATCHER) Vaginal Bleeding: UTI, Vaginitis, Other ( Ovarian cyst, uterine fibroids, pelvic pain) X-Ray, Labs, Meds, VS Vital Signs Date Time Temp Pulse Resp B/P (MAP) Pulse Ox O2 Delivery O2 Flow Rate FiO2 10/24/24 15:10 98.3 94 18 115/75 (88) 98 98.3 Lab Test 10/24/24 15:25 10/24/24 15:15 Range/Units White Blood Count 5.4 4.4-10.8 10^3/uL Red Blood Count 4.98 4.0-5.20 10^6/uL Hemoglobin 15.3 12.2-16.2 g/dL Hematocrit 45.1 36.0-46.0 % Mean Corpuscular Volume 90.5 80.0-100.0 fL Mean Corpuscular Hemoglobin 30.7 28.0-32.0 pg Mean Corpuscular Hemoglobin Concent 34.0 32.0-36.0 g/dL Red Cell Distribution Width 13.3 11.8-14.3 % Platelet Count 288 140-450 10^3/uL Mean Platelet Volume 9.0 6.9-10.8 fL Neutrophils (%) (Auto) 55.2 37.0-80.0 % Lymphocytes (%) (Auto) 32.3 10.0-50.0 % Monocytes (%) (Auto) 9.7 0.0-12.0 % Eosinophils (%) (Auto) 2.0 0.0-7.0 % Basophils (%) (Auto) 0.8 0.0-2.0 % Neutrophils # (Auto) 3.0 1.6-8.6 10 ^3/uL Lymphocytes # (Auto) 1.7 0.4-5.4 10 ^3/uL Monocytes # (Auto) 0.5 0-1.3 10 ^3/uL Eosinophils # (Auto) 0.1 0-0.8 10 ^3/uL Basophils # (Auto) 0 0-0.2 10 ^3/uL Nucleated Red Blood Cells 0.1 % Sodium Level 138 136-145 mmol/L Potassium Level 4.6 3.5-5.1 mmol/L Chloride Level 107 98-107 mmol/L Carbon Dioxide Level 26 20-31 mmol/L Anion Gap 5 5-15 Blood Urea Nitrogen 15 9-23 mg/dL Creatinine 0.75 0.550-1.02 mg/dL Glomerular Filtration Rate Calc 115 >90 mL/min BUN/Creatinine Ratio 20.0 10.0-20.0 Serum Glucose 76 74-106 mg/dL Calcium Level 10.3 8.7-10.4 mg/dL Lipase 62 H 12-53 U/L Urine Color Colorless Yellow Urine Clarity Clear Clear Urine pH 6.5 5.0-9.0 Urine Specific [place] 1.012 1.001-1.035 Urine Protein Negative Negative Urine Ketones Negative Negative Urine Blood Negative Negative /uL Urine Nitrite Negative Negative Urine Bilirubin Negative Negative Urine Urobilinogen Normal Negative mg/dL Urine Leukocyte Esterase Negative Negative /uL Urine RBC None seen 0 - 4 /hpf Urine Microscopic WBC < 1 0-5 /HPF Urine Squamous Epithelial Cells Few <5 /hpf Urine Bacteria None seen None Seen /hpf Urine Glucose Normal Normal mg/dL [address] [address] Ph: [phone] DIAGNOSTIC IMAGING Diagnostic Imaging Report : [id number] Signed PATIENT: SHERINE MARYACCT: [id number] UNIT: [id number] : 2000 LOC: ER ROOM / BED: / AGE / SEX: 24 / F ADM STATUS: REG ER SERVICE 1520 ORDERING PHYSICIAN: HONORIO OSWALD PAC PROCEDURE(s): PELUS - PELVIC REASON: Ovarian evaluation bilateral ORDER NUMBER(s): [id number], ACCESSION NUMBER(s): [id number] INDICATION: Ovarian evaluation bilateral TECHNIQUE: Multiple real-time grayscale transabdominal sonographic images along with color and duplex Doppler of the uterus and ovaries were obtained. COMPARISON: None FINDINGS: The uterus measures 7.2 X 3.6 X 2.9 cm. The endometrial stripe measures 0.6 cm. The right ovary measures 4.1 X 2.9 X 2.4 cm. RIGHT OVARIAN VOLUME 15 CC The left ovary measures 3.3 X 2.9 X 2.3 cm. LEFT OVARIAN VOLUME IS 12 CC Subsequent color and duplex Doppler interrogation of the ovaries demonstrated symmetric vascular flow to both ovaries, though this does not exclude the po ssibility of torsion due to the dual blood supply. IMPRESSION: 1. Grossly unremarkable pelvic ultrasound. 2. Ovaries are prominent doppler imaging of both ovaries is normal. ATED BY: PASCUAL RUFFIN Jr., DO DICTATED DATE/TIME: 10/24/24 161 SIGNED BY: PASCUAL RUFFIN Jr., SIGNED DATE/TIME: 10/24/24 161 CC: [place] [id number] Ph: [phone] DIAGNOSTIC IMAGING Diagnostic Imaging Report : [id number] Signed PATIENT: SHERINE MARYACCT: [id number] UNIT: [id number] : 2000 LOC: ER ROOM / BED: / AGE / SEX: 24 / F ADM STATUS: REG ER SERVICE 1618 ORDERING PHYSICIAN: HONORIO OSWALD PAC PROCEDURE(s): ABPL - CT AB PEL WO CON-NO ORAL OR IV REASON: Elevated lipase ORDER NUMBER(s): [id number], ACCESSION NUMBER(s): [id number] Procedure: CT CT AB PEL WO CON-NO ORAL OR IV 10/24/2024 04:14 PM Indication: Elevated lipase Comparison Study: None Technique: Axial images were obtained and reformatted in coronal and sagittal planes. All CT scans at this medical facility are performed using dose modulation techniques as appropriate to a performed exam including the following: Automated exposure control was utilized; adjustment of the MA and/or KV according to patient size; and use of iterative reconstruction technique. CT Dose: CTDI volume is 23 mGy. Dose-length product is 1203 mGy*cm FINDINGS: Lower Chest: Unremarkable. Hepatobiliary: Unremarkable. Spleen: Unremarkable. Pancreas: Unremarkable. No pancreatic edema, peripancreatic inflammation, pancreatic duct dilatation or pseudocyst formation. Adrenal Glands: Unremarkable. tract: The kidneys are normal in size bilaterally without hydronephrosis or nephrolithiasis. The urinary bladder is unremarkable. GI tract: The stomach is grossly normal in appearance. No evidence of small bowel obstruction. The large bowel is unremarkable. The appendix is normal. Lymphatics: No mesenteric, retroperitoneal or periportal lymphadenopathy. Vasculature: The abdominal aorta is normal in in caliber. Pelvic Organs: Unremarkable Bones/soft tissues: No acute abnormality. Other: None. IMPRESSION: 1. No CT evidence of acute abnormality in the abdomen and pelvis. Specifically, the pancreas is unremarkable. No pancreatic edema or peripancreatic inflammation. ATED BY: HEATHER URIBE MD DICTATED DATE/TIME: 10/24/241708 SIGNED BY: HEATHER URIBE MD SIGNED DATE/TIME: 10/24/241708 CC: X-Ray, Labs, Meds, VS Comment All studies performed the ED were evaluated by me personally. Serum laboratories were generally unremarkable across the board except for an elevated lipase. Ultrasound of the pelvis was unremarkable for even polycystic ovarian concerns. Ovaries bilaterally looked unremarkable. I ordered a CT of the abdomen and pelvis due to the patient's lipase levels. CT of the abdomen and pelvis were unremarkable for any intra-abdominal or pelvic concerns. No signs of masses or lesions. Patient will be discharged home with the advised him to follow up with the primary care provider as I feel she may require a rheumatology referral and evaluation as she may have some autoimmune concerns. 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 Based on conversation with the patient arrival, patient may require a erection shop supervisor as she may be dealing with an unknown autoimmune condition. e-Prescriptions Acetaminophen (Acetaminophen) 500 Mg Tab 500 MG PO Q4HP PRN, #30 TAB Prov: MARGRET,HONORIO Cici PAC 10/24/24 Ondansetron Odt 4MG Tab (ZOFRAN PO) 4 Mg Tb 4 MG PO Q6HP PRN, #15 TAB ODT TAB-DISSOLVE IN MOUTH, THEN SWALLOW Prov: HONORIO OSWALD PAC 10/24/24 Ibuprofen Micronized (Ibuprofen) 800 Mg Tab 800 MG PO Q8HP PRN, #20 TAB Prov: MARGRET,HONORIO Cici PAC 10/24/24 Discharged With: Self, Friend Critical Care Note Critical Care Time?: No Stability Stability form required: No Heart Score Heart Score: Heart Score Response (Comments) Value History N/A 0 EKG N/A 0 Age N/A 0 Risk Factors N/A 0 Troponin N/A 0 Total 0 I personally scribed for MARGRETHONORIO GRAVES B PAC ([email or web address]) on 10/24/24 at 15:31. Electronically submitted by Gretchen Lala ([email or web address]). I personally scribed for MARGRETHONORIO B PAC ([email or web address]) on 10/24/24 at 15:47. Electronically submitted by Gretchen Lala ([email or web address]). I personally scribed for MARGRET,HONORIO B PAC ([email or web address]) on 10/24/24 at 17:08. Electronically submitted by Gretchen Lala ([email or web address]). I personally scribed for MELECIO CAMPOS MD ([email or web address]) on 10/24/24 at 17:24. Electronically submitted by Gretchen Lala [email or web address]). HONORIO OSWALD B PAC Oct 24, 2024 15:31 MELECIO CAMPOS MD Oct 24, 2024 17:24
[2024-10-24 15:53] LABS: Basophils # (auto) 0 10 ^3/uL (0-0.2); Basophils % (auto) 0.8 % (0.0-2.0); Eosinophils # (auto) 0.1 10 ^3/uL (0-0.8); Hematocrit 45.1 % (36.0-46.0); Hemoglobin 15.3 g/dL (12.2-16.2); Lymphocytes # (auto) 1.7 10 ^3/uL (0.4-5.4); Lymphocytes % (auto) 32.3 % (10.0-50.0); Mean Corpuscular Hemoglobin 30.7 pg (28.0-32.0); Mean Corpuscular Volume 90.5 fL (80.0-100.0); Monocytes # (auto) 0.5 10 ^3/uL (0-1.3); Monocytes % (auto) 9.7 % (0.0-12.0); Neutrophils % (auto) 55.2 % (37.0-80.0); Nucleated Red Blood Cells % 0.1 %; Platelet Count (auto) 288 10^3/uL (140-450); Red Blood Cells 4.98 10^6/uL (4.0-5.20); Red Cell Distribution Width 13.3 % (11.8-14.3); White Blood Cell 5.4 10^3/uL (4.4-10.8)
[2024-10-24 16:01] LABS: Urine Bacteria None Seen /hpf (None Seen)
[2024-10-24 16:04] LABS: Anion Gap 5 (5-15); Carbon Dioxide 26 mmol/L (20-31); Chloride 107 mmol/L (98-107); Potassium 4.6 mmol/L (3.5-5.1); Sodium 138 mmol/L (136-145)
[2024-10-24 16:05] LABS: Calcium 10.3 mg/dL (8.7-10.4)
[2024-10-24 16:06] LABS: Urine Blood Negative /uL (Negative); Urine Clarity Clear (Clear); Urine Color Colorless (Yellow); Urine Protein, UAD Negative (Negative); Urine Specific Gravity 1.012 (1.001-1.035); Urine Squamous Epithelial Cell FEW /hpf (<5); Urine Urobilinogen Normal (Negative); Urine WBC < 1 /HPF (0-5); Urine pH 6.5 (5.0-9.0)
[2024-10-24 16:09] LABS: Glucose 76 mg/dL (74-106)
[2024-10-24 16:10] LABS: Lipase 62 U/L (12-53)
[2024-10-24 16:12] LABS: Blood Urea Nitrogen 15 mg/dL (9-23)
--- NOTE | 2024-10-24 16:14 | DVH ---
INDICATION: Ovarian evaluation bilateral TECHNIQUE: Multiple real-time grayscale transabdominal sonographic images along with color and duplex Doppler of the uterus and ovaries were obtained. COMPARISON: None FINDINGS: The uterus measures 7.2 X 3.6 X 2.9 cm. The endometrial stripe measures 0.6 cm. The right ovary measures 4.1 X 2.9 X 2.4 cm. RIGHT OVARIAN VOLUME 15 CC The left ovary measures 3.3 X 2.9 X 2.3 cm. LEFT OVARIAN VOLUME IS 12 CC Subsequent color and duplex Doppler interrogation of the ovaries demonstrated symmetric vascular flow to both ovaries, though this does not exclude the possibility of torsion due to the dual blood suppl y. IMPRESSION: 1. Grossly unremarkable pelvic ultrasound. 2. Ovaries are prominent doppler imaging of both ovaries is normal.
--- NOTE | 2024-10-24 17:12 | DVH ---
Procedure: CT CT AB PEL WO CON-NO ORAL OR IV 10/24/2024 04:14 PM Indication: Elevated lipase Comparison Study: None Technique: Axial images were obtained and reformatted in coronal and sagittal planes. All CT scans at this medical facility are performed using dose modulation techniques as appropriate to a performed e xam including the following: Automated exposure control was utilized; adjustment of the MA and/or KV according to patient size; and use of iterative reconstruction technique. CT Dose: CTDI volume is 23 mGy. Dose-length product is 1203 mGy*cm FINDINGS: Lower Chest: Unremarkable. Hepatobiliary: Unremarkable. Spleen: Unremarkable. Pancreas: Unremarkable. No pancreatic edema, peripancreatic inflammation, pancreatic duct dilatation or pseudocyst formation. Adrenal Glands: Unremarkable. tract: The kidneys are normal in size bilaterally without hydronephrosis or nephrolithiasis. The u rinary bladder is unremarkable. GI tract: The stomach is grossly normal in appearance. No evidence of small bowel obstruction. The la rge bowel is unremarkable. The appendix is normal. Lymphatics: No mesenteric, retroperitoneal or periportal lymphadenopathy. Vasculature: The abdominal aorta is normal in in caliber. Pelvic Organs: Unremarkable Bones/soft tissues: No acute abnormality. Other: None. IMPRESSION: 1. No CT evidence of acute abnormality in the abdomen and pelvis. Specifically, the pancreas is unre markable. No pancreatic edema or peripancreatic inflammation.
[2024-10-24] MEDS ORDERED: ZOFR4T PO (17:21)
[2024-10-24] MEDS ORDERED: IBUP-1455 PO (17:21)
[2024-10-24] MEDS ORDERED: ACET500T58 PO (17:21)
[2024-10-24 17:36] VITALS: BP 113/81; PULSE 80; RESP 18; TEMP 98; O2SAT 98
== END 2024-10-24 17:38 | disposition home or self-care (01) ==
LOC: ER 15:02
DX: R10.2 Pelvic and perineal pain (principal); R53.83 Other fatigue; R53.1 Weakness; F41.9 Anxiety disorder, unspecified; J45.909 Unspecified asthma, uncomplicated; I10 Essential (primary) hypertension; E28.2 Polycystic ovarian syndrome; Z79.899 Other long term (current) drug therapy
CPT/HCPCS: 36415; 74176; 76856; 80048; 81001; 83690; 85025

== ENCOUNTER 2024-12-28 00:50 | Emergency (ER) | payer SELFPAY, MEDICAID ==
[~2024-12-28] VITALS: Ht 177.8 cm; Wt 81.8 kg
[~2024-12-28 00:50] MED LIST changes: +ACET500T58 PO; +IBUP-1455 PO; +ZOFR4T PO
--- NOTE | 2024-12-28 01:23 | ED.PDOC ---
HPI Comments 24-year-old female came to ER via EMS for chest pains. Patient has history of hypertension, asthma, and SVTs. States for the entire day, then episodes of substernal chest pains, shortness of breath, dizziness and palpitations. Symptoms persisted made her very anxious. Persistence of chest pains prompted patient to come to the ER Chief Complaint: Chest Pain Time Seen by MD: 01:22 Primary Care Provider: MILLIE Reviewed Notes: Nurses Notes Allergies: Coded Allergies: NO KNOWN ALLERGIES (Unverified , 06/08/24) Home Meds Active Scripts Acetaminophen (Acetaminophen) 500 Mg Tab, 500 MG PO Q4HP PRN, #30 TAB Prov:HONORIO OSWALD PAC 10/24/24 Ondansetron Odt 4MG Tab (ZOFRAN PO) 4 Mg Tb, 4 MG PO Q6HP PRN, #15 TAB ODT TAB-DISSOLVE IN MOUTH, THEN SWALLOW Prov:HONORIO OSWALD PAC 10/24/24 Ibuprofen Micronized (Ibuprofen) 800 Mg Tab, 800 MG PO Q8HP PRN, #20 TAB Prov:HONORIO OSWALD PAC 10/24/24 Sertraline Hcl (Sertraline Hcl) 25 Mg Tab, 1 TAB PO DAILY for 30 Days, #30 TAB 2 Refills Prov:SHUKRI BROCK RESIDENT 09/07/24 Alprazolam (Xanax) 0.5 Mg Tb, 1 TAB PO TID, #10 TAB Prov:HONORIO OSWALD PAC 06/09/24 Information Source: Patient Mode of Arrival: EMS Severity: Moderate Timing: Hours Duration: Intermittent Location: Substernal Radiation: No Radiation Quality: Sharp Onset: With Light Exertion Cardiac Risk Factors: HTN, Other (SVTs) History of: Similar pain in past Associated Signs and Symptoms: SOB, Palpitations Past Medical History PAST MEDICAL HISTORY: Anxiety, Asthma, HTN Past Medical History (Other): SVTs Surgical History: Denies all surgeries 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 Family History Family History: Reviewed,noncontributory to illness Social History Smoker: Non-Smoker Alcohol: Denies ETOH Use Drugs: Denies Drug Use Lives In: Home Constitutional: denies: chills, diaphoresis, fatigue, fever, malaise, sweats, weakness, others EENTM: denies: blurred vision, double vision, ear bleeding, ear discharge, ear drainage, ear pain, ear ringing, eye pain, eye redness, hearing loss, mouth pain, mouth swelling, nasal discharge, nose bleeding, nose congestion, nose pain, photophobia, tearing, throat pain, throat swelling, voice changes, others Respiratory: reports: SOB at rest, shortness of breath; denies: cough, hemoptysis, orthopnea, SOB with excertion, stridor, wheezing, others Cardiovascular: reports: chest pain, dizzy spells, diaphoresis, palpitations; denies: Dyspnea on exertion, edema, irregular heart beat, left arm pain, lightheadedness, PND, syncope, others Gastrointestinal: denies: abdomen distended, abdominal pain, blood streaked bowels, constipated, diarrhea, dysphagia, difficulty swallowing, hematemesis, melena, nausea, poor appetite, poor fluid intake, rectal bleeding, rectal pain, vomiting, others Genitourinary: denies: abnormal vagina bleeding, burning, dyspareunia, dysuria, flank pain, frequency, hematuria, incontinence, pain, , vagina discharge, urgency, others Neurological: denies: dizziness, fainting, headache, left sided numbness, left sided weakness, numbness, paresthesia, pre-existing deficit, right sided numbness, right sided weakness, seizure, speech problems, tingling, tremors, weakness, others Musculoskeletal: denies: back pain, gout, joint pain, joint swelling, muscle pain, muscle stiffness, neck pain, others Integumetry: denies: bruises, change in color, change in hair/nails, dryness, laceration, lesions, lumps, rash, wounds, others Allergic/Immunocompromised: denies: Difficulty Healing, Frequent Infections, Hives, Itching, others Hematologic/Lymphatic: denies: anemia, blood clots, easy bleeding, easy bruising, swollen glands, others Endocrine: denies: excessive hunger, excessive sweating, excessive thirst, excessive urination, flushing, intolerance to cold, intolerance to heat, unexplained weight gain, unexplained weight loss, others Psychiatric: denies: anxiety, bipolar disorder, depression, hopeless, panic disorder, schizophrenia, sleepless, suicidal, others Physical Exam General Appearance: No Apparent Distress, Normal HEENT: Normal ENT Inspection, Pharynx Normal, TMs Normal Neck: Full Range of Motion, Non-Tender, Normal, Normal Inspection Respiratory: Chest Non-Tender, Lungs Clear, No Accessory Muscle Use, No Respiratory Distress, Normal Breath Sounds Cardiovascular: No Edema, No JVD, No Murmur, No Gallop, Normal Peripheral Pu lses, Regular Rate/Rhythm Breast Exam: Deferred Gastrointestinal: No Organomegaly, Non Tender, No Pulsatile Mass, Normal Bowel Sounds, Soft Genitalia: Deferred Pelvic: Deferred Rectal: Deferred Extremities: No calf tenderness, Normal capillary refill, Normal inspection, Normal range of motion, Non-tender, No pedal edema Musculoskeletal : Apperance: Normal Neurologic: Alert, advertising internship II-XII nml as Tested, No Motor Deficits, Normal Affect, Normal Mood, No Sensory Deficits Cerebellar Function: Normal Reflexes: Normal Skin: Dry, Normal Color, Warm Lymphatic: No Adenopathy Was a procedure done? Was a procedure done?: No CP Differential Dx Differential Diagnosis: A-fib, Angina, Anxiety / Panic Attack, PSVT, Sinus Tachycardia Differential Diagnosis: Angina, Chest Wall Pain, Costochondritis, Esophageal reflux/spasm, Gastritis, Myocardial Infarction X-Ray, Labs, Meds, VS Vital Signs Date Time Temp Pulse Resp B/P (MAP) Pulse Ox O2 Delivery O2 Flow Rate FiO2 12/28/24 02:50 Room Air* 0 21 12/28/24 02:50 98.7 70 18 108/76 (87) 98 98.7 12/28/24 01:47 81 12/28/24 00:57 98.7 70 18 108/76 (87) 98 98.7 12/28/24 00:51 84 Lab Test 12/28/24 02:14 12/28/24 01:06 Range/Units Troponin I High Sensitivity < 3 L < 3 L </=34 ng/L White Blood Count 5.6 4.4-10.8 10^3/uL Red Blood Count 4.43 4.0-5.20 10^6/uL Hemoglobin 13.6 12.2-16.2 g/dL Hematocrit 39.9 36.0-46.0 % Mean Corpuscular Volume 90.1 80.0-100.0 fL Mean Corpuscular Hemoglobin 30.7 28.0-32.0 pg Mean Corpuscular Hemoglobin Concent 34.1 32.0-36.0 g/dL Red Cell Distribution Width 13.7 11.8-14.3 % Platelet Count 251 140-450 10^3/uL Mean Platelet Volume 8.8 6.9-10.8 fL Neutrophils (%) (Auto) 50.3 37.0-80.0 % Lymphocytes (%) (Auto) 37.5 10.0-50.0 % Monocytes (%) (Auto) 8.0 0.0-12.0 % Eosinophils (%) (Auto) 3.4 0.0-7.0 % Basophils (%) (Auto) 0.8 0.0-2.0 % Neutrophils # (Auto) 2.8 1.6-8.6 10 ^3/uL Lymphocytes # (Auto) 2.1 0.4-5.4 10 ^3/uL Monocytes # (Auto) 0.4 0-1.3 10 ^3/uL Eosinophils # (Auto) 0.2 0-0.8 10 ^3/uL Basophils # (Auto) 0 0-0.2 10 ^3/uL Nucleated Red Blood Cells 0.2 % Prothrombin Time 11.2 9.3-11.8 sec Prothrombin Time INR 1.06 0.9-1.15 Activated Partial Thromboplast Time 30.2 24.5-34.5 SEC Sodium Level 139 136-145 mmol/L Potassium Level 3.8 3.5-5.1 mmol/L Chloride Level 106 98-107 mmol/L Carbon Dioxide Level 26 20-31 mmol/L Anion Gap 7 5-15 Blood Urea Nitrogen 11 9-23 mg/dL Creatinine 0.76 0.550-1.02 mg/dL Glomerular Filtration Rate Calc 114 >90 mL/min BUN/Creatinine Ratio 14.5 10.0-20.0 Serum Glucose 137 H 74-106 mg/dL Calcium Level 8.7 8.7-10.4 mg/dL Total Bilirubin 0.2 0.2-1.0 mg/dL Aspartate Amino Transferase (AST) 23 13-40 U/L Alanine Aminotransferase (ALT) 27 7-40 U/L Alkaline Phosphatase 66 46-116 U/L B-Type Natriuretic Peptide 9.14 0-100 pg/mL Total Protein 6.5 5.7-8.2 g/dL Albumin 4.0 3.2-4.8 g/dL Time of 1ST Reevaluation: 01:19 Reevaluation 1ST: Unchanged Patient Education/Counseling: Diagnosis, Treatment Family Education/Counseling: No Family Present Departure 1 Departure Time of Disposition: 03:00 Impression: Primary Impression: Atypical chest pain Disposition: 01 HOME / SELF CARE / HOMELESS Condition: Stable Discharged With: Self Critical Care Note Critical Care Time?: Yes (35 min-critical care time only) Critical care comment: Acute chest pains Stability Stability form required: No Heart Score Heart Score: Heart Score Response (Comments) Value History Slightly Suspicious 0 EKG Normal 0 Age <45 0 Risk Factors 1 or 2 risk factors 1 Troponin Normal limit 0 Total 1 I personally scribed for ERNESTO MART MD ([email or web address]) on 12/28/24 at 01:23. Electronically submitted by Dada Faust ([email or web address]). ERNESTO MART MD December 28, 2024 01:23
[2024-12-28 01:27] LABS: Basophils # (auto) 0 10 ^3/uL (0-0.2); Basophils % (auto) 0.8 % (0.0-2.0); Eosinophils # (auto) 0.2 10 ^3/uL (0-0.8); Eosinophils % (auto) 3.4 % (0.0-7.0); Hematocrit 39.9 % (36.0-46.0); Hemoglobin 13.6 g/dL (12.2-16.2); Lymphocytes # (auto) 2.1 10 ^3/uL (0.4-5.4); Lymphocytes % (auto) 37.5 % (10.0-50.0); Mean Corpuscular Hemoglobin 30.7 pg (28.0-32.0); Mean Corpuscular Hgb Conc. 34.1 g/dL (32.0-36.0); Mean Corpuscular Volume 90.1 fL (80.0-100.0); Monocytes # (auto) 0.4 10 ^3/uL (0-1.3); Neutrophils # (auto) 2.8 10 ^3/uL (1.6-8.6); Neutrophils % (auto) 50.3 % (37.0-80.0); Nucleated Red Blood Cells % 0.2 %; Platelet Count (auto) 251 10^3/uL (140-450); Red Blood Cells 4.43 10^6/uL (4.0-5.20); Red Cell Distribution Width 13.7 % (11.8-14.3); White Blood Cell 5.6 10^3/uL (4.4-10.8)
--- NOTE | 2024-12-28 01:29 | DVH ---
CHEST RADIOGRAPH Indication: chest pain Technique: Single frontal view of the chest was obtained COMPARISON: XY CHEST PORTABLE on DOS: 09/25/24 FINDINGS: Lines and Tubes: None Lungs: Clear Pleura: No effusion.No pneumothorax. Cardiomediastinal contours: Unremarkable IMPRESSION: No abnormality.
[2024-12-28 01:46] LABS: INR 1.06 (0.9-1.15); Partial Thromboplastin Time 30.2 SEC (24.5-34.5); Prothrombin Time 11.2 sec (9.3-11.8)
[2024-12-28 01:49] LABS: Alanine Aminotransferase 27 U/L (7-40); Alkaline Phosphatase 66 U/L (46-116); Anion Gap 7 (5-15); Aspartate Aminotransferase 23 U/L (13-40); BUN/Creatinine Ratio 14.5 (10.0-20.0); Blood Urea Nitrogen 11 mg/dL (9-23); Calcium 8.7 mg/dL (8.7-10.4); Carbon Dioxide 26 mmol/L (20-31); Chloride 106 mmol/L (98-107); Potassium 3.8 mmol/L (3.5-5.1); Sodium 139 mmol/L (136-145); Total Protein 6.5 g/dL (5.7-8.2)
[2024-12-28 01:51] LABS: Bilirubin, Total 0.2 mg/dL (0.2-1.0); Glucose 137 mg/dL (74-106)
--- NOTE | 2024-12-28 02:33 | ECG ---
[facility] Test Date: 2024-12-28 Test Time: 00:51:48 Pat Name: SHERINE MARY Department: ED Room: Gender: F Network Support Analyst: benito : 2000 Requested By: ERNESTO MART Order Number: [id number] Reading MD: Jorge Daugherty Measurements Intervals [place] Rate: 84 P: 67 [place]: 142 QRS: 56 QRSD: 78 T: 33 QT: 370 QTc: 438 Interpretive Statements Sinus rhythm LAE, consider biatrial enlargement Electronically Signed On 12-30-2024 12:05:03 PDT by Jorge Daugherty Please click the below link to view image of tracing.
[2024-12-28 02:50] VITALS: BP 108/76; PULSE 70; RESP 18; TEMP 98.7; O2SAT 98
== END 2024-12-28 03:00 | disposition home or self-care (01) ==
LOC: ER 00:50 → EDBD 00:50 → ER 03:00
DX: R07.89 Other chest pain (principal); F41.9 Anxiety disorder, unspecified; J45.909 Unspecified asthma, uncomplicated; I10 Essential (primary) hypertension; Z79.899 Other long term (current) drug therapy
CPT/HCPCS: 36415; 71045; 80053; 83880; 84484; 85025; 85610; 85730; 93005

== ENCOUNTER 2025-01-30 01:13 | Emergency (ER) | payer MEDICAID, SELFPAY ==
[~2025-01-30] VITALS: Ht 165.1 cm; Wt 81.8 kg
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
--- NOTE | 2025-01-30 01:47 | DVH ---
CHEST RADIOGRAPH Indication: chest pain Technique: Single frontal view of the chest was obtained COMPARISON: XY CHEST PORTABLE on DOS: 12/28/24, XY CHEST PORTABLE on DOS: 09/25/24, XY CHEST XRAY 1 VIE W on DOS: 09/06/24 FINDINGS: Lines and Tubes: None Lungs: Clear Pleura: No effusion. No pneumothorax. Cardiomediastinal contours: Unremarkable Bones: Unremarkable IMPRESSION: 1. No acute disease.
[2025-01-30 02:07] LABS: Basophils # (auto) 0 10 ^3/uL (0-0.2); Basophils % (auto) 0.7 % (0.0-2.0); Eosinophils # (auto) 0.1 10 ^3/uL (0-0.8); Eosinophils % (auto) 1.7 % (0.0-7.0); Hematocrit 42.1 % (36.0-46.0); Hemoglobin 14.7 g/dL (12.2-16.2); Lymphocytes # (auto) 1.5 10 ^3/uL (0.4-5.4); Lymphocytes % (auto) 28.3 % (10.0-50.0); Mean Corpuscular Hemoglobin 31.3 pg (28.0-32.0); Mean Corpuscular Volume 89.3 fL (80.0-100.0); Monocytes # (auto) 0.4 10 ^3/uL (0-1.3); Monocytes % (auto) 7.7 % (0.0-12.0); Neutrophils # (auto) 3.2 10 ^3/uL (1.6-8.6); Neutrophils % (auto) 61.6 % (37.0-80.0); Nucleated Red Blood Cells % 0.1 %; Platelet Count (auto) 223 10^3/uL (140-450); Red Blood Cells 4.71 10^6/uL (4.0-5.20); Red Cell Distribution Width 13.6 % (11.8-14.3); White Blood Cell 5.2 10^3/uL (4.4-10.8)
[2025-01-30 02:17] LABS: Chloride 105 mmol/L (98-107); Sodium 141 mmol/L (136-145)
[2025-01-30 02:18] LABS: Anion Gap 9 (5-15); Calcium 9.2 mg/dL (8.7-10.4); Carbon Dioxide 27 mmol/L (20-31)
[2025-01-30 02:23] LABS: BUN/Creatinine Ratio 12.4 (10.0-20.0); Blood Urea Nitrogen 12 mg/dL (9-23)
[2025-01-30 02:24] LABS: Glucose 120 mg/dL (74-106)
[2025-01-30 03:10] VITALS: BP 131/57; PULSE 82; RESP 16; TEMP 98.1; O2SAT 98
--- NOTE | 2025-01-30 07:10 | ECG ---
[facility] Test Date: 2025-01-30 Test Time: 01:18:45 Pat Name: SHERINE MARY Department: ED Room: Gender: F Commodity Supervisor: MIREILLE : 2000 Requested By: ADITHYA CHUA Order Number: [id number] Reading MD: Jorge Daugherty Measurements Intervals [place] Rate: 91 P: 73 TN: 152 QRS: 67 QRSD: 80 T: 32 QT: 356 QTc: 439 Interpretive Statements Sinus rhythm LAE, consider biatrial enlargement Borderline T wave abnormalities Electronically Signed On 02-01-2025 20:04:34 PDT by Jorge Daugherty Please click the below link to view image of tracing.
== END 2025-01-30 03:08 | disposition home or self-care (01) ==
LOC: ER 01:13 → EDBD 01:13 → ER 03:08
DX: R07.89 Other chest pain (principal); R00.2 Palpitations; I10 Essential (primary) hypertension; F41.9 Anxiety disorder, unspecified; J45.909 Unspecified asthma, uncomplicated; Z79.899 Other long term (current) drug therapy
CPT/HCPCS: 36415; 71045; 80048; 84484; 85025; 93005

== ENCOUNTER 2025-04-23 20:25 | Emergency (ER) | payer MEDICAID ==
[~2025-04-23] VITALS: Ht 165.1 cm; Wt 100.0 kg
--- NOTE | 2025-04-23 20:34 | ED.PDOC ---
HPI Comments HPI: Poor Historian. 25-year-old female brought in by ambulance from home for evaluation of midsternal chest pain nonradiating constant that started this morning with the associated palpitations of heart rate according to the patient in the 170s. Patient has history of SVT. Palpitation has resolved prior to arrival. Patient's chest pain has significantly improved without any intervention. She has no acute distress at this time. Patient has history of anxiety and panic attacks. Current Rx: Metoprolol, Albuterol, Hydroxyzine Past Medical History: SVT, ANXIETY, ASTHMA, PCOS Past Surgical History: DENIES ANY Denies any use of drugs tobacco or alcohol. REVIEW OF SYSTEMS: CONSTITUTIONAL: Denies acute: fever, diaphoresis, chills, generalized weakness. HEAD: Denies acute: headache, photophobia Eyes: Denies acute: Double vision, vision loss, eye pain, eye discharge. EARS: Denies acute: tinnitus, hearing loss, ear discharge, ear pain, THROAT: Denies acute: sore throat, swelling, difficulty swallowing , pain with swallowing, change in voice. NECK: Denies acute: neck pain, neck swelling, stiff neck. HEART: Denies acute : LUNGS: Denies acute: SOB, wheezing, cough, hemoptysis ABDOMEN: Denies acute: abdominal pain, Nausea, Vomiting, diarrhea, melena , hematemesis, hematochezia SKIN: Denies acute: rash, redness, lesions, itchiness. EXTREMITIES: Denies acute: calf pain, numbness, tingling, weakness, denies pain in extremity. Denies acute: Low back pain. Neuro: Denies acute: focal neurological deficit, motor or sensory focal neurological deficit, tremors, seizure like activity, confusion, dizziness, change in mental status, loss of bowel or bladder function, cauda equina like symptoms. : Denies acute: dysuria, hematuria, flank pain, increase in urinary frequency. PSYCH: Denies acute: hallucination, suicidal ideation, homicidal ideation. FEMALE: Denies acute: abnormal vaginal bleeding, foul odor, unusual discharge. PHYSICAL EXAM: General: -----no---acute distress, awake and alert. Head: normocephalic, atraumatic. Neck: supple, trachea is midline, no swelling. Throat: Normal phonation. Eyes:, no erythema, no purulent discharge, no proptosis, no icterus. Heart: regular rate, regular rhythm, no significant murmur appreciated. Lungs: no apparent respiratory distress, Able to speak in full sentences. No wheezing, no rhonchi, no crackles. No stridors Clear to auscultation bilaterally. Abdomen: non tender to palpation, non distended, soft, no guarding, no rebound, + bowel sounds. Morbidly obese Neuro: Awake, Alert, oriented to name, self, situation, follows commands GCS=15. Speech is normal. Skin: no petechia, no purpura, no cyanosis, non-pale, not jaundice. Lower extremities: --no - Pitting edema no deformity, no focal swelling, no calf TTP. Makes eye contact. moves all four extremities. Face: no apparent facial droop. ED COURSE: DISCLAIMER: This medical document was created using an electronic medical record system with voice recognition software and computerized dictation system. Although this document has been carefully reviewed, there might still be some phonetic and typographical errors. Occasional wrong-word or "sound-alike" substitutions may have occurred due to the inherent limitations of voice recognition software. These areas are purely typographical due to imperfections of the software programs and do not reflect any compromise in the patient's medical care. Please read the chart carefully and recognize, using context, where these substitutions have occurred. Time Seen by MD: 20:30 Primary Care Provider: MILLIE Reviewed Notes: Nurses Notes, Medications, Allergies Allergies: Coded Allergies: NO KNOWN ALLERGIES (Unverified , 06/08/24) Home Meds Active Scripts Acetaminophen (Acetaminophen) 500 Mg Tab, 500 MG PO Q4HP PRN, #30 TAB Prov:HONORIO OSWALD PAC 10/24/24 Ondansetron Odt 4MG Tab (ZOFRAN PO) 4 Mg Tb, 4 MG PO Q6HP PRN, #15 TAB ODT TAB-DISSOLVE IN MOUTH, THEN SWALLOW Prov:HONORIO OSWALD PAC 10/24/24 Ibuprofen Micronized (Ibuprofen) 800 Mg Tab, 800 MG PO Q8HP PRN, #20 TAB Prov:HONORIO OSWALD PAC 10/24/24 Sertraline Hcl (Sertraline Hcl) 25 Mg Tab, 1 TAB PO DAILY for 30 Days, #30 TAB 2 Refills Prov:SHUKRI BROCK RESIDENT 09/07/24 Alprazolam (Xanax) 0.5 Mg Tb, 1 TAB PO TID, #10 TAB Prov:HONORIO OSWALD PAC 06/09/24 Information Source: Patient, Emergency Med Personnel Mode of Arrival: EMS Severity: Moderate Timing: Hours Duration: Since onset Prehospital treatment: None Location: Substernal Radiation: No Radiation Quality: Other (dull) Onset: At Rest Cardiac Risk Factors: None PE Risk Factors: None History of: Similar pain in past Modifying Factors: Nothing Associated Signs and Symptoms: None Past Medical History PAST MEDICAL HISTORY: Anxiety, Asthma, HTN Surgical History: 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 Was a procedure done?: No CP Differential Dx Differential Diagnosis: Anxiety / Panic Attack, Sinus Tachycardia X-Ray, Labs, Meds, VS Vital Signs Date Time Temp Pulse Resp B/P (MAP) Pulse Ox O2 Delivery O2 Flow Rate FiO2 04/23/25 21:51 70 04/23/25 21:01 86 04/23/25 20:30 97.9 82 18 121/81 100 97.9 04/23/25 20:28 86 Lab Test 04/23/25 21:31 04/23/25 20:42 Range/Units Troponin I High Sensitivity < 3 L < 3 L </=34 ng/L White Blood Count 5.4 4.4-10.8 10^3/uL Red Blood Count 4.54 4.0-5.20 10^6/uL Hemoglobin 14.2 12.2-16.2 g/dL Hematocrit 41.0 36.0-46.0 % Mean Corpuscular Volume 90.3 80.0-100.0 fL Mean Corpuscular Hemoglobin 31.3 28.0-32.0 pg Mean Corpuscular Hemoglobin Concent 34.6 32.0-36.0 g/dL Red Cell Distribution Width 13.6 11.8-14.3 % Platelet Count 253 140-450 10^3/uL Mean Platelet Volume 8.9 6.9-10.8 fL Neutrophils (%) (Auto) 52.3 37.0-80.0 % Lymphocytes (%) (Auto) 35.7 10.0-50.0 % Monocytes (%) (Auto) 8.6 0.0-12.0 % Eosinophils (%) (Auto) 3.0 0.0-7.0 % Basophils (%) (Auto) 0.4 0.0-2.0 % Neutrophils # (Auto) 2.8 1.6-8.6 10 ^3/uL Lymphocytes # (Auto) 1.9 0.4-5.4 10 ^3/uL Monocytes # (Auto) 0.5 0-1.3 10 ^3/uL Eosinophils # (Auto) 0.2 0-0.8 10 ^3/uL Basophils # (Auto) 0 0-0.2 10 ^3/uL Nucleated Red Blood Cells 0.2 % Sodium Level 141 136-145 mmol/L Potassium Level 4.1 3.5-5.1 mmol/L Chloride Level 106 98-107 mmol/L Carbon Dioxide Level 27 20-31 mmol/L Anion Gap 8 5-15 Blood Urea Nitrogen 7 L 9-23 mg/dL Creatinine 0.89 0.550-1.02 mg/dL Glomerular Filtration Rate Calc 93 >90 mL/min BUN/Creatinine Ratio 7.9 L 10.0-20.0 Serum Glucose 116 H 74-106 mg/dL Calcium Level 8.6 L 8.7-10.4 mg/dL Total Bilirubin 0.3 0.2-1.0 mg/dL Aspartate Amino Transferase (AST) 19 13-40 U/L Alanine Aminotransferase (ALT) 14 7-40 U/L Alkaline Phosphatase 69 46-116 U/L Total Protein 7.0 5.7-8.2 g/dL Albumin 4.1 3.2-4.8 g/dL [address] [address] Ph: [phone] DIAGNOSTIC IMAGING Diagnostic Imaging Report : [id number] Signed PATIENT: SHERINE MARY LACCT: [id number] UNIT: [id number] : 2000 LOC: ER ROOM / BED: / AGE / SEX: 25 / F ADM STATUS: REG ER SERVICE 32 ORDERING PHYSICIAN: MIKE CORTÉS DO PROCEDURE(s): CXRP - CHEST PORTABLE REASON: cp ORDER NUMBER(s): [id number], ACCESSION NUMBER(s): [id number] CHEST RADIOGRAPH Indication: cp Technique: Single frontal view of the chest was obtained Comparison: XY CHEST PORTABLE on DOS: 01/30/25, XY CHEST PORTABLE on DOS: 12/28/24, XY CHEST PORTABLE on DOS: 09/25/24 FINDINGS: Lines and Tubes: None Lungs: No focal consolidation. Pleura: No effusion. No pneumothorax. Cardiomediastinal contours: Unremarkable Bones: No acute osseous abnormality. IMPRESSION: 1. No acute cardiopulmonary disease. 2. No significant change from 01/30/2025. ATED BY: PASCUAL RUFFIN Jr., DO DICTATED DATE/TIME: 04/23/252055 SIGNED BY: PASCUAL RUFFIN Jr., SIGNED DATE/TIME: 04/23/252055 CC: Time of 1ST Reevaluation: 23:19 Reevaluation 1ST: Resolved Patient Education/Counseling: Diagnosis, Treatment Family Education/Counseling: No Family Present Departure 1 Departure Time of Disposition: 23:18 Impression: Primary Impression: Chest pain Disposition: 01 HOME / SELF CARE / HOMELESS Condition: Stable Additional Instructions: Additional instructions: Please read all instructions provided in this packet carefully. You MUST follow-up with your primary care/family doctor in 1 to 2 days. If you are unable to see your primary care/family doctor, please return to our emergency room for re-assessment and re-evaluation in 1 to 2 days. Return to the emergency room here in our facility or to the nearest ER [facility] if your symptoms change or worsen. CONSULTATIONS: you MUST Follow-up for consultation as soon as possible with: --cardiology in 1-2 days. Please call for appointment. You MUST call the consultants office yourself to make an appointment. You may need to arrange that through your insurance and/or your primary/family doctor. If you are unable to see the organizational consultant in 1 to 2 days, you must return to our emergency room (or any other ER of your choice) for re-assessment and re- evaluation. Adequate fluid hydration. Although you have been discharged from the Emergency Department, this does not mean that you have a "clean bill of health". No definitive diagnosis for your symptoms has been made today. It is possible that you are in the process of developing a serious illness. This is why you must return to the ED without fail if any new or worsening symptoms develop. Below is a copy of your radiological report for follow up: [address] [address] Ph: [phone] DIAGNOSTIC IMAGING Diagnostic Imaging Report : [id number] Signed PATIENT: SHERINE MARY ACCT: [id number] UNIT: [id number] : 2000 LOC: ER ROOM / BED: / AGE / SEX: 25 / F ADM STATUS: REG ER SERVICE 32 ORDERING PHYSICIAN: MIKE CORTÉS DO PROCEDURE(s): CXRP - CHEST PORTABLE REASON: cp ORDER NUMBER(s): [id number], ACCESSION NUMBER(s): [id number] CHEST RADIOGRAPH Indication: cp Technique: Single frontal view of the chest was obtained Comparison: XY CHEST PORTABLE on DOS: 01/30/25, XY CHEST PORTABLE on DOS: 12/28/24, XY CHEST PORTABLE on DOS: 09/25/24 FINDINGS: Lines and Tubes: None Lungs: No focal consolidation. Pleura: No effusion. No pneumothorax. Cardiomediastinal contours: Unremarkable Bones: No acute osseous abnormality. IMPRESSION: 1. No acute cardiopulmonary disease. 2. No significant change from 01/30/2025. ATED BY: PASCUAL RUFFIN Jr., DO DICTATED DATE/TIME: 04/23/252055 SIGNED BY: PASCUAL RUFFIN Jr., DO SIGNED DATE/TIME: 04/23/252055 CC: Discharged With: Self Critical Care Note Critical Care Time?: No Heart Score Heart Score: Heart Score Response (Comments) Value History N/A 0 EKG Normal 0 Age <45 0 Risk Factors No known risk factors 0 Troponin N/A 0 Total 0 I personally scribed for MIKE CORTÉS DO ([email or web address]) on 04/23/25 at 21:01. Electronically submitted by Gretchen Lala ([email or web address]). I personally scribed for MIKE CORTÉS DO ([email or web address]) on 04/23/25 at 21:59. Electronically submitted by Grethcen Lala ([email or web address]). MIKE CORTÉS DO Apr 23, 2025 20:34
--- NOTE | 2025-04-23 20:58 | DVH ---
CHEST RADIOGRAPH Indication: cp Technique: Single frontal view of the chest was obtained Comparison: XY CHEST PORTABLE on DOS: 01/30/25, XY CHEST PORTABLE on DOS: 12/28/24, XY CHEST PORTABLE o n DOS: 09/25/24 FINDINGS: Lines and Tubes: None Lungs: No focal consolidation. Pleura: No effusion. No pneumothorax. Cardiomediastinal contours: Unremarkable Bones: No acute osseous abnormality. IMPRESSION: 1. No acute cardiopulmonary disease. 2. No significant change from 01/30/2025.
[2025-04-23 21:09] LABS: Hematocrit 41.0 % (36.0-46.0); Hemoglobin 14.2 g/dL (12.2-16.2); Mean Corpuscular Hemoglobin 31.3 pg (28.0-32.0); Mean Corpuscular Volume 90.3 fL (80.0-100.0); Nucleated Red Blood Cells % 0.2 %
[2025-04-23 21:26] LABS: Alanine Aminotransferase 14 U/L (7-40); Albumin 4.1 g/dL (3.2-4.8); Alkaline Phosphatase 69 U/L (46-116); Anion Gap 8 (5-15); BUN/Creatinine Ratio 7.9 (10.0-20.0); Carbon Dioxide 27 mmol/L (20-31); Chloride 106 mmol/L (98-107); Potassium 4.1 mmol/L (3.5-5.1); Sodium 141 mmol/L (136-145); Total Protein 7.0 g/dL (5.7-8.2)
[2025-04-23 21:36] LABS: Bilirubin, Total 0.3 mg/dL (0.2-1.0); Blood Urea Nitrogen 7 mg/dL (9-23); Calcium 8.6 mg/dL (8.7-10.4); Glucose 116 mg/dL (74-106)
--- NOTE | 2025-04-23 23:18 | ECG ---
[facility] Test Date: 2025-04-23 Test Time: 23:16:22 Pat Name: SHERINE MARY Department: ED Room: Gender: F Radiopharmacist: MARTHA : 2000 Requested By: MIKE CORTÉS Order Number: [id number] Reading MD: Jorge Daugherty Measurements Intervals [place] Rate: 62 P: 37 TN: 118 QRS: 33 QRSD: 86 T: 28 QT: 417 QTc: 424 Interpretive Statements Sinus rhythm Borderline short TN interval Probable left atrial enlargement Electronically Signed On 04-24-2025 16:41:38 PDT by Jorge Daugherty Please click the below link to view image of tracing.
--- NOTE | 2025-04-23 23:18 | ECG ---
[facility] Test Date: 2025-04-23 Test Time: 21:51:33 Pat Name: SHERINE MARY Department: ED Room: Gender: F Director Of Research Center: MARTHA : 2000 Requested By: MIKE CORTÉS Order Number: [id number] Reading MD: Jorge Daugherty Measurements Intervals [place] Rate: 70 P: 38 [place]: 123 QRS: 34 QRSD: 92 T: 30 QT: 404 QTc: 436 Interpretive Statements Sinus rhythm Probable left atrial enlargement Electronically Signed On 04-24-2025 16:41:24 PDT by Jorge Daugherty Please click the below link to view image of tracing.
[2025-04-23 23:33] VITALS: BP 125/85; PULSE 70; RESP 16; TEMP 98.6; O2SAT 99
--- NOTE | 2025-04-24 06:16 | ECG ---
[facility] Test Date: 2025-04-23 Test Time: 20:28:58 Pat Name: SHERINE MARY Department: Room: Gender: F Shift Supervisor Film Processing: MARTHA : 2000 Requested By: MIKE CORTÉS Order Number: [id number] Reading MD: Jorge Daugherty Measurements Intervals [place] Rate: 86 P: 34 [place]: 131 QRS: 40 QRSD: 85 T: 31 QT: 377 QTc: 451 Interpretive Statements Sinus rhythm Probable left atrial enlargement Baseline wander in lead(s) II,III,aVF,V1 Electronically Signed On 04-24-2025 16:41:15 PDT by Jorge Daugherty Please click the below link to view image of tracing.
== END 2025-04-23 23:35 | disposition home or self-care (01) ==
LOC: ER 20:25 → EDBD 20:25 → ER 23:35
DX: R07.89 Other chest pain (principal); I10 Essential (primary) hypertension; Z86.79 Personal history of other diseases of the circulatory system; Z79.899 Other long term (current) drug therapy
CPT/HCPCS: 36415; 71045; 80053; 84484; 85025; 93005